=== PATIENT | male | born 1945 | race Caucasian/White ===

== ENCOUNTER → 2017-02-11 | Outpatient (CLI) | payer MEDICARE ==
[~2017-02-11] MED LIST: AMOX500C PO; ASPI-39 PO; CHOL500045 PO; FENO145T2 PO; MELO15TA23 PO; OMEP40CA5 PO; SIMV80TA3 PO; SUCR1TAB PO; THIA100T22 PO; TRAM50TA PO; ZOLP10TA4 PO
== END | disposition home or self-care (01) ==
LOC: LAB 11:59
PROVIDERS: ATTEND Family Medicine
DX: E78.5 Hyperlipidemia, unspecified (principal)
CPT/HCPCS: 36415; 82947; 83036

== ENCOUNTER → 2017-09-28 | Outpatient (CLI) | payer MEDICARE | END | disposition home or self-care (01) | LOC: RAD 13:04 | DX: J44.9 Chronic obstructive pulmonary disease, unspecified (principal); M25.78 Osteophyte, vertebrae | CPT/HCPCS: 71046 ==

== ENCOUNTER → 2018-03-08 | Outpatient (CLI) | payer MEDICARE ==
[~2018-03-08] MED LIST changes: -FENO145T2 PO; +FENO145T30 PO; -SIMV80TA3 PO; +SIMV80TA7 PO
--- NOTE | 2018-03-08 14:40 | RAD ---
Pelvis with both hips, 03/08/2018: HISTORY: Hip pain, arthritis There is severe narrowing of both hip joints with marginal spurring, subchondral sclerosis and cystic changes along both sides of the hip joints. The appearance is that of extensive osteoarthritis. There is mild associated irregularity of this articular surfaces of both femoral heads. Underlying avascular necrosis could be contributing to the cystic and sclerotic changes in the femoral heads. No fracture or dislocation is identified. Scattered vascular calcifications are present. IMPRESSION: 1. Severe osteoarthritis at both hip joints. 2. No acute bony abnormality is detected. Electronically signed by: Arnie Killian MD (03/08/2018 2:37 PM) [facility]
== END | disposition home or self-care (01) ==
LOC: RAD 13:50
PROVIDERS: ATTEND Internal Medicine Cardiovascular Disease
DX: M17.0 Bilateral primary osteoarthritis of knee (principal); I10 Essential (primary) hypertension; E78.00 Pure hypercholesterolemia, unspecified; I25.10 Atherosclerotic heart disease of native coronary artery without angina pectoris; Z87.891 Personal history of nicotine dependence
CPT/HCPCS: 73521

== ENCOUNTER 2020-11-07 01:36 | Inpatient (IN) | payer MEDICARE ==
[~2020-11-07] VITALS: Ht 175.3 cm; Wt 73.0 kg
[~2020-11-07 01:36] MED LIST changes: +FENO145T3 PO; -FENO145T30 PO; +OMEP40CA45 PO; -OMEP40CA5 PO; +SIMV80TA17 PO; -SIMV80TA7 PO
[2020-11-07 02:48] LABS: BASO # 0.1 x10^3/uL (0.0-0.2); BASO % 2 % (0-3); EOS # 0.3 x10^3/uL (0.0-0.7); EOS % 5 % (0-3); HEMATOCRIT 40.8 % (39.0-53.0); LYMPH # 1.7 x10^3/uL (1.0-4.8); LYMPH % 30 % (24-48); MEAN CORPUSCULAR HEMOGLOBIN 30 pg (25-35); MEAN CORPUSCULAR HGB CONC 34 g/dL (31-37); MEAN CORPUSCULAR VOLUME 87 fL (79-100); MONO # 0.5 x10^3/uL (0.0-1.1); MONO % 8 % (0-9); NEUT # 3.1 x10^3/uL (1.8-7.7); NEUT % 55 % (31-73); PLATELET COUNT 179 x10^3/uL (140-400); RED BLOOD COUNT 4.71 x10^6/uL (4.30-5.70); RED CELL DISTRIBUTION WIDTH 13.9 % (11.5-14.5); WHITE BLOOD COUNT 5.8 x10^3/uL (4.0-11.0)
--- NOTE | 2020-11-07 02:51 | ED.ADGEN ---
Past Medical History Past Medical History: Anxiety, Arthritis, GERD, High Cholesterol Past Surgical History: Tonsillectomy Smoking Status: Current Every Day Smoker Alcohol Use: None Drug Use: None General Adult EDM: Chief Complaint: MULTIPLE COMPLAINTS HPI: HPI: Patient is a 75-year-old male with past medical history of hyperlipidemia and high blood pressure who presents to the emergency room with multiple complaints. Patient states that 2 weeks ago he had an MRI done of his abdomen to look at something in his kidney and the noise within the MRI was very loud. He states that since that time he has been having tinnitus. He states that it sounds like a pulsing sensation in his right ear and is constant in nature. He states that 2 weeks ago he also had an episode where he lost the vision in the bottom half of his right eye. He states this only lasted a few minutes before resolving on its own. He states that this evening he had some mild chest tightness with some numbness in his arm. He states that these have both resolved. He states the chest tightness was very mild in nature. Review of Systems: Review of Systems: Complete ROS is negative unless otherwise documented in HPI Current Medications: Current Medications Medications (Trade) Dose Ordered Sig/Zan Start Time Stop Time Status Last Admin Dose Admin Info (CONTRAST GIVEN -- Rx MONITORING) 1 each PRN DAILY PRN 11/07/20 03:45 11/09/20 03:44 Iohexol (Omnipaque 300 Mg/ml) 75 ml 1X ONCE 11/07/20 03:45 11/07/20 03:46 DC 11/07/20 04:10 75 ML Allergies: Allergies: Allergies Coded Allergies Type Severity Reaction Last Updated Verified No Known Drug Allergies 10/30/13 No Physical Exam: PE: General: Awake, alert, NAD. Well Nourished, well hydrated. Cooperative HEENT: Atraumatic, EOMI, PERRL, airway patent, moist oral mucosa Neck: Supple, trachea midline Respiratory: CTA bilaterally, normal effort, no wheezing/crackles CV: RRR, no murmur, cap refill <2 GI: Soft, nondistended, nontender, no masses MSK: No obvious deformities Skin: Warm, dry, intact Neuro: A&O x3, speech NL, 5/5 strength in BUE/BLE distally and proximally, CN 2- 12 intact, cerebellar testing normal Psych: Normal affect, normal mood, not suicidal or homicidal Current Patient Data: Labs: Laboratory Tests Test 11/07/20 02:18 11/07/20 03:37 White Blood Count 5.8 x10^3/uL (4.0-11.0) Red Blood Count 4.71 x10^6/uL (4.30-5.70) Hemoglobin 14.0 g/dL (13.0-17.5) Hematocrit 40.8 % (39.0-53.0) Mean Corpuscular Volume 87 fL (79-100) Mean Corpuscular Hemoglobin 30 pg (25-35) Mean Corpuscular Hemoglobin Concent 34 g/dL (31-37) Red Cell Distribution Width 13.9 % (11.5-14.5) Platelet Count 179 x10^3/uL (140-400) Neutrophils (%) (Auto) 55 % (31-73) Lymphocytes (%) (Auto) 30 % (24-48) Monocytes (%) (Auto) 8 % (0-9) Eosinophils (%) (Auto) 5 % (0-3) H Basophils (%) (Auto) 2 % (0-3) Neutrophils # (Auto) 3.1 x10^3/uL (1.8-7.7) Lymphocytes # (Auto) 1.7 x10^3/uL (1.0-4.8) Monocytes # (Auto) 0.5 x10^3/uL (0.0-1.1) Eosinophils # (Auto) 0.3 x10^3/uL (0.0-0.7) Basophils # (Auto) 0.1 x10^3/uL (0.0-0.2) Sodium Level 143 mmol/L (136-145) Potassium Level 3.6 mmol/L (3.5-5.1) Chloride Level 106 mmol/L (98-107) Carbon Dioxide Level 31 mmol/L (21-32) Anion Gap 6 (6-14) Blood Urea Nitrogen 20 mg/dL (8-26) Creatinine 1.2 mg/dL (0.7-1.3) Estimated GFR (Cockcroft-Gault) 59.0 BUN/Creatinine Ratio 17 (6-20) Glucose Level 91 mg/dL (70-99) Calcium Level 9.0 mg/dL (8.5-10.1) Total Bilirubin 0.3 mg/dL (0.2-1.0) Aspartate Amino Transferase (AST) 19 U/L (15-37) Alanine Aminotransferase (ALT) 32 U/L (16-63) Alkaline Phosphatase 91 U/L (46-116) Troponin I Quantitative < 0.017 ng/mL (0.000-0.055) MI-Nsj-I-Type Natriuretic Peptide 43 pg/mL (0-449) Total Protein 7.4 g/dL (6.4-8.2) Albumin 4.1 g/dL (3.4-5.0) Albumin/Globulin Ratio 1.2 (1.0-1.7) Urine Collection Type Unknown Urine Color Yellow Urine Clarity Clear Urine pH 5.5 (<5.0-8.0) Urine Specific Vaughn 1.025 (1.000-1.030) Urine Protein 30 mg/dL (NEG-TRACE) Urine Glucose (UA) Negative mg/dL (NEG) Urine Ketones (Stick) Negative mg/dL (NEG) Urine Blood Large (NEG) Urine Nitrite Negative (NEG) Urine Bilirubin Negative (NEG) Urine Urobilinogen Dipstick 0.2 mg/dL (0.2 mg/dL) Urine Leukocyte Esterase Small (NEG) Urine RBC >40 /HPF (0-2) Urine WBC 5-10 /HPF (0-4) Urine Squamous Epithelial Cells Occ /LPF Urine Bacteria 0 /HPF (0-FEW) Urine Mucus Marked /LPF Laboratory Tests 11/07/20 02:18 Laboratory Tests 11/07/20 02:18 Vital Signs: Vital Signs Date Time Temp Pulse Resp B/P (MAP) Pulse Ox O2 Delivery O2 Flow Rate FiO2 11/07/20 04:29 62 16 122/58 (79) 98 Room Air 11/07/20 01:55 99.0 99.0 EKG: EKG: [] Heart Score: C/O Chest Pain: N/A Risk Factors: Risk Factors: DM, Current or recent (<one month) smoker, HTN, HLP, family history of CAD, obesity. Risk Scores: Score 0 - 3: 2.5% MACE over next 6 weeks - Discharge Home Score 4 - 6: 20.3% MACE over next 6 weeks - Admit for Clinical Observation Score 7 - 10: 72.7% MACE over next 6 weeks - Early Invasive Strategies Radiology/Procedures: Radiology/Procedures: [] Course & Med Decision Making: Course & Med Decision Making Pertinent Labs and Imaging studies reviewed. (See chart for details) Patient is a 75-year-old male who presents to the emergency room with several vague complaints. All of patient's complaints have now resolved. He did have an episode of visual loss in his right eye and has been having tinnitus. This could be related to a carotid artery blockage. Patient also had some fleeting chest pain. Cardiac evaluation will be done. CT head and CT angio head and neck will be done to evaluate patient's tinnitus and visual changes. He does not have any signs of cranial nerve dysfunction or weakness on exam. CT angio shows stenosis which may be the cause of patient's tinnitus. Given patient's intermittent symptoms there is concern that at some point patient may be at risk of having a stroke. We will admit him for evaluation by neurology and vascular surgery. John Disclaimer: John Disclaimer: This electronic medical record was generated, in whole or in part, using a voice recognition dictation system. 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
[2020-11-07 03:08] LABS: CREATININE 1.2 mg/dL (0.7-1.3); POTASSIUM 3.6 mmol/L (3.5-5.1)
[2020-11-07 03:16] LABS: ALBUMIN 4.1 g/dL (3.4-5.0); ALBUMIN/GLOBULIN RATIO 1.2 (1.0-1.7); TOTAL BILIRUBIN 0.3 mg/dL (0.2-1.0); TOTAL PROTEIN 7.4 g/dL (6.4-8.2)
[2020-11-07 03:45] LABS: BILIRUBIN,URINE NEGATIVE (NEG); CLARITY,URINE CLEAR; COLOR,URINE YELLOW; NITRITE,URINE NEGATIVE (NEG); PH,URINE 5.5 (<5.0-8.0); PROTEIN,URINE 30 mg/dL (NEG-TRACE); UROBILINOGEN,URINE 0.2 mg/dL (0.2 mg/dL)
[2020-11-07] MEDS ORDERED: CONTRAST GIVEN. MC PRN (03:45)
[2020-11-07] MEDS ORDERED: IOHEXOL 300 MG/ML 100ML VIAL. IV ONE (03:45)
--- NOTE | 2020-11-07 04:06 | RAD ---
CT head without contrast dated 11/07/2020. Comparison made to 10/30/2013. CLINICAL INDICATION: Visual changes. Tinnitus. TECHNIQUE: Contiguous axial imaging the head was performed from skull base to vertex. No contrast administered. One or more of the following individualized dose reduction techniques were utilized for this examinat ion: 1. Automated exposure control 2. Adjustment of the mA and/or kV according to patient size 3. Use of iterative reconstruction technique. FINDINGS: Ventricles and sulci are mildly prominent for age. No midline shift or mass effect. Mild patchy low d ensity in the deep/subcortical periventricular white matter. No hemorrhage or extra-axial collection. Posterior fossa and brainstem unremarkable. Visualized paranasal sinuses and mastoid air cells are clear. No apparent calvarial abnormality. IMPRESSION: 1. No evidence of acute intracranial hemorrhage or mass. 2. Mild chronic small vessel ischemic changes and atrophy. Electronically signed by: Deandre Lim MD (11/07/2020 4:03 AM) [facility]
[2020-11-07 04:08] LABS: BACTERIA,URINE 0 /HPF (0-FEW); RBC,URINE >40 /HPF (0-2)
--- NOTE | 2020-11-07 04:20 | RAD ---
Single view chest dated 11/07/2020. Comparison made to 09/28/2017. CLINICAL INDICATION: Chest pain. FINDINGS: Single upright portable exam performed. Heart and mediastinal contours are stable. Lungs are somewhat hyperinflated and there are some prominent perihilar linear markings, unchanged. Small nodular focus in the right upper lobe is stable. No pleural effusion or pneumothorax. IMPRESSION: No acute radiographic abnormality. Stable findings compared to 09/28/2017. Electronically signed by: Deandre Lim MD (11/07/2020 4:18 AM) [facility]
--- NOTE | 2020-11-07 05:00 | RAD ---
CTA head and neck with contrast dated 11/07/2020. No comparison available. CLINICAL INDICATION: Tinnitus and visual changes. TECHNIQUE: Contiguous axial imaging of the head and neck performed following the intravenous administration of 7 5 cc Omnipaque 300. Study was performed as dedicated CTA with thin cut coronal and sagittal MIPS elvis nstruction. One or more of the following individualized dose reduction techniques were utilized for this examinat ion: 1. Automated exposure control 2. Adjustment of the mA and/or kV according to patient size 3. Use of iterative reconstruction technique Carotid Stenosis calculations for CT, MR, and conventional angiography are based upon measurements of the distal ICA diameter in accordance with the NASCET methodology. Stenosis calculations for carotid ultrasound studies are derived from validated velocity criteria which are known to correlate with th e NASCET methodology. FINDINGS: Arch anatomy is standard. Scattered calcific plaque at the origin of the left common carotid and bila teral subclavian arteries. No osteal stenosis. There is mild narrowing of the left vertebral artery o rigin. The right vertebral artery origin is patent. Bilateral vertebrals are otherwise patent to the skull base. No intimal flap or focal stenosis. The intradural vertebral arteries are patent. Basilar artery is well formed. Bilateral BLINDST[employer] MACHINE OPERATOR are patent. There is origin of the left BLINDSTITCH MACHINE OPERATOR. Common carotid arteries are patent. There is mild narrowing of the mid to distal right CCA. Calcific and soft plaque at the right carotid bifurcation results in high-grade narrowing of the proximal ICA, estimated at 75-80% stenosis. The right ECA is occluded proximally.. The right internal carotid rangel ry is otherwise patent to the skull base. There is mild calcific plaque at the left carotid bifurcati on resulting in mild narrowing of the proximal left ICA. Left ICA is otherwise patent to the skull ba se. Petrous and cavernous internal carotid arteries are patent. There is scattered calcific plaque result ing in mild multifocal narrowing. CHINMAY and MCA branches are patent. There is a patent anterior communi cating artery. No evidence of aneurysm. No proximal branch vessel occlusion. Postcontrast imaging the brain shows no abnormal enhancement. Dural venous sinuses are grossly patent . No significant soft tissue abnormality. Images of lung apices show mild to moderate emphysema. IMPRESSION: 1. High-grade stenosis of the proximal right ICA, estimated at 75-80% stenosis. 2. Mild narrowing of the proximal left ICA. 3. Occlusion of the right ECA. 4. No evidence of aneurysm or proximal MCA branch occlusion. Electronically signed by: Deandre Lim MD (11/07/2020 4:58 AM) [facility]
--- NOTE | 2020-11-07 06:21 | EKG ---
[facility] [address] [place] [address] Test Date: 2020-11-07 Test Time: 01:46:18 Pat Name: CHARU UNDERWOOD Department: Room: Gender: Bar Hostess: : 1945 Requested By: ILENE PHILLIPS Order Number: [id number] Reading MD: Measurements Intervals [place] Rate: 79 P: 66 [place]: 176 QRS: 38 QRSD: 72 T: 73 QT: 370 QTc: 425 Interpretive Statements SINUS RHYTHM T ABNORMALITY IN HIGH LATERAL LEADS ABNORMAL ECG RI6.01 No previous ECG available for comparison
[2020-11-07 07:20] VITALS: BP 150/56
[2020-11-07] MEDS ORDERED: AMLO-187 PO (07:46)
[2020-11-07] MEDS ORDERED: TEMA30CA PO (07:46)
[2020-11-07] MEDS ORDERED: METO-239 (07:46)
[2020-11-07] MEDS ORDERED: TAMS0.4C97 (07:46)
[2020-11-07] MEDS ORDERED: HYDR-2763 PO (07:46)
[2020-11-07] MEDS ORDERED: ROSU40TA22 PO (07:46)
[2020-11-07] MEDS ORDERED: MORPHINE SULFATE 4 MG/ML VIAL. IV PRN (08:15)
[2020-11-07 08:54] LABS: CHOLESTEROL/HDL RATIO 4.1
[2020-11-07] MEDS ORDERED: SUCRALFATE 1 GM TABLET. PO SCH (09:00)
[2020-11-07] MEDS: METOPROLOL SUCC 24HR ER 25 MG TAB.ER.24H. PO SCH (09:00)
[2020-11-07] MEDS: THIAMINE 100 MG TABLET. PO SCH ×2 (09:25→21:08)
[2020-11-07] MEDS: TAMSULOSIN 0.4 MG CAP.ER.24H. PO SCH ×2 (09:25→09:27)
[2020-11-07] MEDS: HYDROcodone/APAP 7.5/325MG 1 TAB TABLET PO PRN ×2 (09:25→14:00)
[2020-11-07 10:29] VITALS: BP 107/58
--- NOTE | 2020-11-07 10:32 | PDOC2 ---
NEUROLOGY CONSULT Date of Service DOS: DATE: 11/07/20 TIME: 10:24 Reason for Consult Reason for Consult: Multiple neurological symptoms Referring Physician Referring Physician: Dr. Ojeda Source Source: Chart review, Patient History of Present Illness History of Present Illness The patient is a 75-year-old right-handed male who came to emergency department last night with chest pain and left arm pain and numbness. About 3 weeks ago he had a brief episode of inferior altitudinal right eye visual field deficit lasting just a few minutes. There was no pain involved. Then, he had some MRI studies done on his chest, after which she has noticed pulsatile tinnitus, worse in the right ear. He feels fine today. I saw him in 2013 for migraine visual symptoms. He has had none of that recently. Past Medical History Cardiovascular: Hyperlipidemia CENTRAL NERVOUS SYSTEM: Migraine (varient with stroke symptoms) Musculoskeletal: Osteoarthritis (Is supposed to have bilateral hip replacements) Renal/: Other (Nephrolithiasis) Past Surgical History Past Surgical History: Tonsillectomy (Adenoidectomy), Other (Prostate) Family History Family History: No pertinent hx (Adopted), Other Social History Social History Single, retired, ex-smoker, rare alcohol Current Medications Current Medications Current Medications Iohexol (Omnipaque 300 Mg/ml) 75 ml 1X ONCE IV Last administered on 11/07/20at 04:10; Start 11/07/20 at 03:45; Stop 11/07/20 at 03:46; Status DC Info (CONTRAST GIVEN -- Rx MONITORING) 1 each PRN DAILY PRN MC SEE COMMENTS; Start 11/07/20 at 03:45; Stop 11/09/20 at 03:44 Acetaminophen/ Hydrocodone Bitart (Lortab 7.5/325) 1 tab PRN TID PRN PO MILD TO MODERATE PAIN Last administered on 11/07/20at 09:25; Start 11/07/20 at 08:15 Metoprolol Succinate (Toprol Xl) 50 mg DAILY PO ; Start 11/07/20 at 09:00 Sucralfate (Carafate) 1 gm QID PO ; Start 11/07/20 at 09:00; Stop 11/07/20 at 08:24; Status DC Tamsulosin HCl (Flomax) 0.4 mg DAILY PO Last administered on 11/07/20at 09:27; Start 11/07/20 at 09:00 Temazepam (Restoril) 30 mg PRN QHS PRN PO sleep aid; Start 11/07/20 at 08:15 Thiamine Mononitrate (Vitamin B-1) 100 mg BID PO Last administered on 11/07/20at 09:25; Start 11/07/20 at 09:00 Morphine Sulfate (Morphine Sulfate) 4 mg PRN Q2HR PRN IV SEVERE PAIN; Start 11/07/20 at 08:15 Aspirin ([employer] ([place] [employer] Aspirin) 325 mg DAILYWBKFT PO ; Start 11/07/20 at 09:00 Active Scripts Active Reported Rosuvastatin Calcium 40 Mg Tablet 1 Tab PO DAILY Hydrocodone-Acetamin 7.5-325 (Hydrocodone/Acetaminophen) 1 Each Tablet 1 Tab PO TID PRN Temazepam 30 Mg Capsule 1 Cap PO PRN QHS PRN Flomax (Tamsulosin Hcl) 0.4 Mg Cap.er.24h 0.04 Mg DAILY Metoprolol Succinate ( Xl ) (Metoprolol Succinate) 25 Mg Tab.er.24h 50 Mg DAILY Amlodipine Besylate 10 Mg Tablet 1 Tab PO DAILY MDD 10 Vitamin D (Cholecalciferol (Vitamin D3)) 5,000 Unit Tablet 5,000 Unit PO DAILY Anderson Chewable (Aspirin) 81 Mg Tab.chew 81 Mg PO DAILY Vitamin B-1 (Thiamine Mononitrate) 100 Mg Tablet 100 Mg PO BID Omeprazole 40 Mg Capsule.dr 40 Mg PO DAILY Allergies Allergies: Coded Allergies: No Known Drug Allergies (Unverified , 10/30/13) ROS Review of System Negative for fever, chills, weight loss, shortness of breath, chest pain, indigestion, hematochezia, melena, and dysuria. Full 14-point review of systems is negative. Physical Exam Physical Examination General: Well-developed, well-nourished white male in no acute distress HEENT: Normocephalic andatraumatic. Tympanic membranes clear.Temporal arteriespulsatile and nontender.Fundoscopic exam unremarkable Neck: Supple without bruit, no meningismus Musculoskeletal: Stability:see neurologic. Gait exam:see neurologic. Tone:see neurologic.Strength:see neurologic. Neurological: Mental Status:intact, orientation, memory, attention span/concentration, language, fund of knowledge normal. Cranial Nerves:Pupils equal and reactive to light, extraocular movements areintact, visual gold are full to confrontation. Facial sensation is normal. There is no facial asymmetry. Vestibulo-ocular reflex is intact. Palate elevates and tongue protrudes in midline. All other cranial related problems are negative except as mentioned before.Reflexes:2+ and symmetric with flexor plantar responses. Motor:5/5 strength with normal tone and bulk. Coordination:Finger-nose finger and cbxd-re-stef testing are normal. Rapid alternating movements and fine finger movements are intact. Gait:Arthritic and antalgic, uses 2 canes. Sensory:Normal pinprick, vibration, light touch, proprioception. Vitals VITALS Vital Signs Date Time Temp Pulse Resp B/P (MAP) Pulse Ox O2 Delivery O2 Flow Rate FiO2 11/07/20 09:25 18 Room Air 11/07/20 07:20 98.1 75 150/56 (87) 98 98.1 Labs Labs Laboratory Tests Test 11/07/20 02:18 11/07/20 03:37 White Blood Count 5.8 x10^3/uL (4.0-11.0) Red Blood Count 4.71 x10^6/uL (4.30-5.70) Hemoglobin 14.0 g/dL (13.0-17.5) Hematocrit 40.8 % (39.0-53.0) Mean Corpuscular Volume 87 fL (79-100) Mean Corpuscular Hemoglobin 30 pg (25-35) Mean Corpuscular Hemoglobin Concent 34 g/dL (31-37) Red Cell Distribution Width 13.9 % (11.5-14.5) Platelet Count 179 x10^3/uL (140-400) Neutrophils (%) (Auto) 55 % (31-73) Lymphocytes (%) (Auto) 30 % (24-48) Monocytes (%) (Auto) 8 % (0-9) Eosinophils (%) (Auto) 5 % (0-3) Basophils (%) (Auto) 2 % (0-3) Neutrophils # (Auto) 3.1 x10^3/uL (1.8-7.7) Lymphocytes # (Auto) 1.7 x10^3/uL (1.0-4.8) Monocytes # (Auto) 0.5 x10^3/uL (0.0-1.1) Eosinophils # (Auto) 0.3 x10^3/uL (0.0-0.7) Basophils # (Auto) 0.1 x10^3/uL (0.0-0.2) Sodium Level 143 mmol/L (136-145) Potassium Level 3.6 mmol/L (3.5-5.1) Chloride Level 106 mmol/L (98-107) Carbon Dioxide Level 31 mmol/L (21-32) Anion Gap 6 (6-14) Blood Urea Nitrogen 20 mg/dL (8-26) Creatinine 1.2 mg/dL (0.7-1.3) Estimated GFR (Cockcroft-Gault) 59.0 BUN/Creatinine Ratio 17 (6-20) Glucose Level 91 mg/dL (70-99) Calcium Level 9.0 mg/dL (8.5-10.1) Total Bilirubin 0.3 mg/dL (0.2-1.0) Aspartate Amino Transf (AST/SGOT) 19 U/L (15-37) Alanine Aminotransferase (ALT/SGPT) 32 U/L (16-63) Alkaline Phosphatase 91 U/L (46-116) Troponin I Quantitative < 0.017 ng/mL (0.000-0.055) LS-Nwj-C-Type Natriuretic Peptide 43 pg/mL (0-449) Total Protein 7.4 g/dL (6.4-8.2) Albumin 4.1 g/dL (3.4-5.0) Albumin/Globulin Ratio 1.2 (1.0-1.7) Triglycerides Level 148 mg/dL (0-150) Cholesterol Level 149 mg/dL (0-200) LDL Cholesterol, Calculated 83 mg/dL (0-100) VLDL Cholesterol, Calculated 30 mg/dL (0-40) Non-HDL Cholesterol Calculated 113 mg/dL (0-129) HDL Cholesterol 36 mg/dL (40-60) Cholesterol/HDL Ratio 4.1 Thyroid Stimulating Hormone (TSH) 6.154 uIU/mL (0.358-3.74) Urine Collection Type Unknown Urine Color Yellow Urine Clarity Clear Urine pH 5.5 (<5.0-8.0) Urine Specific [place] 1.025 (1.000-1.030) Urine Protein 30 mg/dL (NEG-TRACE) Urine Glucose (UA) Negative mg/dL (NEG) Urine Ketones (Stick) Negative mg/dL (NEG) Urine Blood Large (NEG) Urine Nitrite Negative (NEG) Urine Bilirubin Negative (NEG) Urine Urobilinogen Dipstick 0.2 mg/dL (0.2 mg/dL) Urine Leukocyte Esterase Small (NEG) Urine RBC >40 /HPF (0-2) Urine WBC 5-10 /HPF (0-4) Urine Squamous Epithelial Cells Occ /LPF Urine Bacteria 0 /HPF (0-FEW) Urine Mucus Marked /LPF Laboratory Tests Test 11/07/20 02:18 11/07/20 03:37 White Blood Count 5.8 x10^3/uL (4.0-11.0) Red Blood Count 4.71 x10^6/uL (4.30-5.70) Hemoglobin 14.0 g/dL (13.0-17.5) Hematocrit 40.8 % (39.0-53.0) Mean Corpuscular Volume 87 fL (79-100) Mean Corpuscular Hemoglobin 30 pg (25-35) Mean Corpuscular Hemoglobin Concent 34 g/dL (31-37) Red Cell Distribution Width 13.9 % (11.5-14.5) Platelet Count 179 x10^3/uL (140-400) Neutrophils (%) (Auto) 55 % (31-73) Lymphocytes (%) (Auto) 30 % (24-48) Monocytes (%) (Auto) 8 % (0-9) Eosinophils (%) (Auto) 5 % (0-3) Basophils (%) (Auto) 2 % (0-3) Neutrophils # (Auto) 3.1 x10^3/uL (1.8-7.7) Lymphocytes # (Auto) 1.7 x10^3/uL (1.0-4.8) Monocytes # (Auto) 0.5 x10^3/uL (0.0-1.1) Eosinophils # (Auto) 0.3 x10^3/uL (0.0-0.7) Basophils # (Auto) 0.1 x10^3/uL (0.0-0.2) Sodium Level 143 mmol/L (136-145) Potassium Level 3.6 mmol/L (3.5-5.1) Chloride Level 106 mmol/L (98-107) Carbon Dioxide Level 31 mmol/L (21-32) Anion Gap 6 (6-14) Blood Urea Nitrogen 20 mg/dL (8-26) Creatinine 1.2 mg/dL (0.7-1.3) Estimated GFR (Cockcroft-Gault) 59.0 BUN/Creatinine Ratio 17 (6-20) Glucose Level 91 mg/dL (70-99) Calcium Level 9.0 mg/dL (8.5-10.1) Total Bilirubin 0.3 mg/dL (0.2-1.0) Aspartate Amino Transf (AST/SGOT) 19 U/L (15-37) Alanine Aminotransferase (ALT/SGPT) 32 U/L (16-63) Alkaline Phosphatase 91 U/L (46-116) Troponin I Quantitative < 0.017 ng/mL (0.000-0.055) CS-Pps-V-Type Natriuretic Peptide 43 pg/mL (0-449) Total Protein 7.4 g/dL (6.4-8.2) Albumin 4.1 g/dL (3.4-5.0) Albumin/Globulin Ratio 1.2 (1.0-1.7) Triglycerides Level 148 mg/dL (0-150) Cholesterol Level 149 mg/dL (0-200) LDL Cholesterol, Calculated 83 mg/dL (0-100) VLDL Cholesterol, Calculated 30 mg/dL (0-40) Non-HDL Cholesterol Calculated 113 mg/dL (0-129) HDL Cholesterol 36 mg/dL (40-60) Cholesterol/HDL Ratio 4.1 Thyroid Stimulating Hormone (TSH) 6.154 uIU/mL (0.358-3.74) Urine Collection Type Unknown Urine Color Yellow Urine Clarity Clear Urine pH 5.5 (<5.0-8.0) Urine Specific [place] 1.025 (1.000-1.030) Urine Protein 30 mg/dL (NEG-TRACE) Urine Glucose (UA) Negative mg/dL (NEG) Urine Ketones (Stick) Negative mg/dL (NEG) Urine Blood Large (NEG) Urine Nitrite Negative (NEG) Urine Bilirubin Negative (NEG) Urine Urobilinogen Dipstick 0.2 mg/dL (0.2 mg/dL) Urine Leukocyte Esterase Small (NEG) Urine RBC >40 /HPF (0-2) Urine WBC 5-10 /HPF (0-4) Urine Squamous Epithelial Cells Occ /LPF Urine Bacteria 0 /HPF (0-FEW) Urine Mucus Marked /LPF Images Images CT head without contrast dated 11/07/2020. Comparison made to 10/30/2013. CLINICAL INDICATION: Visual changes. Tinnitus. TECHNIQUE: Contiguous axial imaging the head was performed from skull base to vertex. No contrast administered. One or more of the following individualized dose reduction techniques were utilized for this examination: 1. Automated exposure control 2. Adjustment of the mA and/or kV according to patient size 3. Use of iterative reconstruction technique. FINDINGS: Ventricles and sulci are mildly prominent for age. No midline shift or mass e ffect. Mild patchy low density in the deep/subcortical periventricular white matter. No hemorrhage or extra-axial collection. Posterior fossa and brainstem unremarkable. Visualized paranasal sinuses and mastoid air cells are clear. No apparent calvarial abnormality. IMPRESSION: 1. No evidence of acute intracranial hemorrhage or mass. 2. Mild chronic small vessel ischemic changes and atrophy. CTA head and neck with contrast dated 11/07/2020. No comparison available. CLINICAL INDICATION: Tinnitus and visual changes. TECHNIQUE: Contiguous axial imaging of the head and neck performed following the intravenous administration of 75 cc Omnipaque 300. Study was performed as dedicated CTA with thin cut coronal and sagittal MIPS reconstruction. One or more of the following individualized dose reduction techniques were utilized for this examination: 1. Automated exposure control 2. Adjustment of the mA and/or kV according to patient size 3. Use of iterative reconstruction technique Carotid Stenosis calculations for CT, MR, and conventional angiography are based upon measurements of the distal ICA diameter in accordance with the NASCET methodology. Stenosis calculations for carotid ultrasound studies are derived from validated velocity criteria which are known to correlate with the NASCET methodology. FINDINGS: Arch anatomy is standard. Scattered calcific plaque at the origin of the left common carotid and bilateral subclavian arteries. No osteal stenosis. There is mild narrowing of the left vertebral artery origin. The right vertebral artery origin is patent. Bilateral vertebrals are otherwise patent to the skull base. No intimal flap or focal stenosis. The intradural vertebral arteries are patent. Basilar artery is well formed. Bilateral [employer] are patent. There is origin of the left [employer]. Common carotid arteries are patent. There is mild narrowing of the mid to distal right CCA. Calcific and soft plaque at the right carotid bifurcation results in high-grade narrowing of the proximal ICA, estimated at 75-80% stenosis. The right ECA is occluded proximally.. The right internal carotid artery is otherwise patent to the skull base. There is mild calcific plaque at the left carotid bifurcation resulting in mild narrowing of the proximal left ICA. Left ICA is otherwise patent to the skull base. Petrous and cavernous internal carotid arteries are patent. There is scattered calcific plaque resulting in mild multifocal narrowing. [place] and MCA branches are patent. There is a patent anterior communicating artery. No evidence of aneurysm. No proximal branch vessel occlusion. Postcontrast imaging the brain shows no abnormal enhancement. Dural venous sinuses are grossly patent. No significant soft tissue abnormality. Images of lung apices show mild to moderate emphysema. IMPRESSION: 1. High-grade stenosis of the proximal right ICA, estimated at 75-80% stenosis. 2. Mild narrowing of the proximal left ICA. 3. Occlusion of the right ECA. 4. No evidence of aneurysm or proximal MCA branch occlusion. Assessment/Plan Assessment/Plan Impression: High-grade stenosis of the proximal right ICA, estimated at 75-80% stenosis, m ild narrowing of the proximal left ICA. He had an episode of altitudinal visual field defect inferiorly, which is somewhat atypical for embolic phenomenon, but still possible Tinnitus following exposure to noise in an MRI scanner Chest pain and left arm pain and numbness, probably cardiac versus GI versus the usual chest pain etiologies. I doubt this was a transient ischemic attack. 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 Recommendations: Agree with obtaining vascular surgery consult, the stenosis on the right carotid is symptomatic MRI of the brain Cardiology consult and echocardiogram Aspirin Lipid profile, already done, he does not need a statin Outpatient ENT consultation with audiology, regarding tinnitus Follow-up with me as needed. Thank you for letting me help with the patient's care. JENNIFER ESCUDERO MD Nov 07, 2020 10:32
--- NOTE | 2020-11-07 11:39 | NUR ---
SS following for discharge planning. SS reviewed pt chart and discussed with pt RN. Pt is from home and is currently on room air. Neurology, Cardiology, Vascular, and Dr. Doherty consulted. Brain MRI and ECHO ordered. SS will continue to follow for discharge planning.
--- NOTE | 2020-11-07 11:45 | PDOC1 ---
History and Physical Date of Admission Date of Admission DATE: 11/07/20 TIME: 11:43 Identification/Chief Complaint Chief Complaint Arm weakness, leg weakness, Source Source: Chart review, Patient History of Present Illness History of Present Illness Mr. Espinal is a 75-year-old male admit with hip pain, leg pain, and arm weakness. He has multiple complaints he reports having a recent MRI, with angio done and complains of worsening tinnitus withpain, he has some new vision change, some blurry vision that is now improved. He states that this evening he had some mild chest tightness with some numbness in his arm. Past Medical History Cardiovascular: Hyperlipidemia CENTRAL NERVOUS SYSTEM: Migraine (varient with stroke symptoms) Musculoskeletal: Osteoarthritis (Is supposed to have bilateral hip replacements) Renal/: Other (Nephrolithiasis) Past Surgical History Past Surgical History: Tonsillectomy (Adenoidectomy), Other (Prostate) Family History Family History: No Significant Social History Smoke: No ALCOHOL: none Drugs: None Current Problem List Problem List Problems Medical Problems: (1) Chest pain Status: Acute (2) Stenosis of right carotid artery greater than 50% Status: Acute (3) Tinnitus Status: Acute Current Medications Current Medications Current Medications Iohexol (Omnipaque 300 Mg/ml) 75 ml 1X ONCE IV Last administered on 11/07/20at 04:10; Start 11/07/20 at 03:45; Stop 11/07/20 at 03:46; Status DC Info (CONTRAST GIVEN -- Rx MONITORING) 1 each PRN DAILY PRN MC SEE COMMENTS; Start 11/07/20 at 03:45; Stop 11/09/20 at 03:44 Acetaminophen/ Hydrocodone Bitart (Lortab 7.5/325) 1 tab PRN TID PRN PO MILD TO MODERATE PAIN Last administered on 11/07/20at 09:25; Start 11/07/20 at 08:15 Metoprolol Succinate (Toprol Xl) 50 mg DAILY PO ; Start 11/07/20 at 09:00 Sucralfate (Carafate) 1 gm QID PO ; Start 11/07/20 at 09:00; Stop 11/07/20 at 08:24; Status DC Tamsulosin HCl (Flomax) 0.4 mg DAILY PO Last administered on 11/07/20at 09:27; Start 4/30/21 at 09:00 Temazepam (Restoril) 30 mg PRN QHS PRN PO sleep aid; Start 11/07/20 at 08:15 Thiamine Mononitrate (Vitamin B-1) 100 mg BID PO Last administered on 11/07/20at 09:25; Start 11/07/20 at 09:00 Morphine Sulfate (Morphine Sulfate) 4 mg PRN Q2HR PRN IV SEVERE PAIN; Start 11/07/20 at 08:15 Aspirin (Geoloqi Aspirin) 325 mg DAILYWBKFT PO ; Start 11/07/20 at 09:00 Active Scripts Active Reported Rosuvastatin Calcium 40 Mg Tablet 1 Tab PO DAILY Hydrocodone-Acetamin 7.5-325 (Hydrocodone/Acetaminophen) 1 Each Tablet 1 Tab PO TID PRN Temazepam 30 Mg Capsule 1 Cap PO PRN QHS PRN Flomax (Tamsulosin Hcl) 0.4 Mg Cap.er.24h 0.04 Mg DAILY Metoprolol Succinate ( Xl ) (Metoprolol Succinate) 25 Mg Tab.er.24h 50 Mg DAILY Amlodipine Besylate 10 Mg Tablet 1 Tab PO DAILY MDD 10 Vitamin D (Cholecalciferol (Vitamin D3)) 5,000 Unit Tablet 5,000 Unit PO DAILY Anderson Chewable (Aspirin) 81 Mg Tab.chew 81 Mg PO DAILY Vitamin B-1 (Thiamine Mononitrate) 100 Mg Tablet 100 Mg PO BID Omeprazole 40 Mg Capsule.dr 40 Mg PO DAILY Allergies Allergies: Coded Allergies: No Known Drug Allergies (Unverified , 10/30/13) ROS General: YES: Fatigue, Malaise; No: Night Sweats, Appetite, Other PSYCHOLOGICAL ROS: No: Anxiety, Behavioral Disorder, Concentration difficultie, Decreased libido, Depression, Disorientation, Hallucinations, Hostility, Irritablity, Memory difficulties, Mood Swings, Obsessive thoughts, Physical abuse, Sexual abuse, Sleep disturbances, Suicidal ideation, Other Eyes: No Blurry vision, No Decreased vision, No Double vision, No Dry eyes, No Excessive tearing, No Eye Pain, No Itchy Eyes, No Loss of vision, No Photophobia, No Scotomata, No Uses contacts, No Uses glasses, No Other Respiratory: No: Cough, Hemoptysis, Orthopnea, Pleuritic Pain, Shortness of breath, SOB with excertion, Sputum Changes, Stridor, Tachypnea, Wheezing, Other Cardiovascular: No Chest Pain, No Palpitations, No Orthopnea, No Paroxysmal Noc. Dyspnea, No Edema, No Lt Headedness, No Other Gastrointestinal: No Nausea, No Vomiting, No Abdominal Pain, No Diarrhea, No Constipation, No Melena, No Hematochezia, No Other Genitourinary: No Dysuria, No Frequency, No Incontinence, No Hematuria, No Retention, No Discharge, No Urgency, No Pain, No Flank Pain, No Other, No , No , No , No , No , No , No Musculoskeletal: Yes Joint Pain, Yes Joint Stiffness Neurological: No Behavorial Changes, No Bowel/Bladder ControlChng, No Confusion, No Dizziness, No Gait Disturbance, No Headaches, No Impaired Coord/balance, No Memory Loss, No Numbness/Tingling, No Seizures, No Speech Problems, No Tremors, No Visual Changes, No Weakness, No Other Skin: No Dry Skin, No Eczema, No Hair Changes, No Lumps, No Mole Changes, No Mottling, No Nail Changes, No Pruritus, No Rash, No Skin Lesion Changes, No Other, No Acne Physical Exam General: Alert, No acute distress HEENT: Atraumatic, PERRLA Extremities: No edema Skin: No rashes, No significant lesion Neuro: Normal tone, Sensation intact Psych/Mental Status: Mood NL Vitals Vitals Vital Signs Date Time Temp Pulse Resp B/P (MAP) Pulse Ox O2 Delivery O2 Flow Rate FiO2 11/07/20 10:29 98.5 62 16 107/58 (74) 95 Room Air 98.5 Labs Labs Laboratory Tests Test 11/07/20 02:18 11/07/20 03:37 11/07/20 09:35 White Blood Count 5.8 x10^3/uL (4.0-11.0) Red Blood Count 4.71 x10^6/uL (4.30-5.70) Hemoglobin 14.0 g/dL (13.0-17.5) Hematocrit 40.8 % (39.0-53.0) Mean Corpuscular Volume 87 fL (79-100) Mean Corpuscular Hemoglobin 30 pg (25-35) Mean Corpuscular Hemoglobin Concent 34 g/dL (31-37) Red Cell Distribution Width 13.9 % (11.5-14.5) Platelet Count 179 x10^3/uL (140-400) Neutrophils (%) (Auto) 55 % (31-73) Lymphocytes (%) (Auto) 30 % (24-48) Monocytes (%) (Auto) 8 % (0-9) Eosinophils (%) (Auto) 5 % (0-3) Basophils (%) (Auto) 2 % (0-3) Neutrophils # (Auto) 3.1 x10^3/uL (1.8-7.7) Lymphocytes # (Auto) 1.7 x10^3/uL (1.0-4.8) Monocytes # (Auto) 0.5 x10^3/uL (0.0-1.1) Eosinophils # (Auto) 0.3 x10^3/uL (0.0-0.7) Basophils # (Auto) 0.1 x10^3/uL (0.0-0.2) Sodium Level 143 mmol/L (136-145) Potassium Level 3.6 mmol/L (3.5-5.1) Chloride Level 106 mmol/L (98-107) Carbon Dioxide Level 31 mmol/L (21-32) Anion Gap 6 (6-14) Blood Urea Nitrogen 20 mg/dL (8-26) Creatinine 1.2 mg/dL (0.7-1.3) Estimated GFR (Cockcroft-Gault) 59.0 BUN/Creatinine Ratio 17 (6-20) Glucose Level 91 mg/dL (70-99) Calcium Level 9.0 mg/dL (8.5-10.1) Total Bilirubin 0.3 mg/dL (0.2-1.0) Aspartate Amino Transf (AST/SGOT) 19 U/L (15-37) Alanine Aminotransferase (ALT/SGPT) 32 U/L (16-63) Alkaline Phosphatase 91 U/L (46-116) Troponin I Quantitative < 0.017 ng/mL (0.000-0.055) < 0.017 ng/mL (0.000-0.055) UO-Mny-A-Type Natriuretic Peptide 43 pg/mL (0-449) Total Protein 7.4 g/dL (6.4-8.2) Albumin 4.1 g/dL (3.4-5.0) Albumin/Globulin Ratio 1.2 (1.0-1.7) Triglycerides Level 148 mg/dL (0-150) Cholesterol Level 149 mg/dL (0-200) LDL Cholesterol, Calculated 83 mg/dL (0-100) VLDL Cholesterol, Calculated 30 mg/dL (0-40) Non-HDL Cholesterol Calculated 113 mg/dL (0-129) HDL Cholesterol 36 mg/dL (40-60) Cholesterol/HDL Ratio 4.1 Thyroid Stimulating Hormone (TSH) 6.154 uIU/mL (0.358-3.74) Urine Collection Type Unknown Urine Color Yellow Urine Clarity Clear Urine pH 5.5 (<5.0-8.0) Urine Specific [place] 1.025 (1.000-1.030) Urine Protein 30 mg/dL (NEG-TRACE) Urine Glucose (UA) Negative mg/dL (NEG) Urine Ketones (Stick) Negative mg/dL (NEG) Urine Blood Large (NEG) Urine Nitrite Negative (NEG) Urine Bilirubin Negative (NEG) Urine Urobilinogen Dipstick 0.2 mg/dL (0.2 mg/dL) Urine Leukocyte Esterase Small (NEG) Urine RBC >40 /HPF (0-2) Urine WBC 5-10 /HPF (0-4) Urine Squamous Epithelial Cells Occ /LPF Urine Bacteria 0 /HPF (0-FEW) Urine Mucus Marked /LPF Laboratory Tests Test 11/07/20 02:18 11/07/20 03:37 11/07/20 09:35 White Blood Count 5.8 x10^3/uL (4.0-11.0) Red Blood Count 4.71 x10^6/uL (4.30-5.70) Hemoglobin 14.0 g/dL (13.0-17.5) Hematocrit 40.8 % (39.0-53.0) Mean Corpuscular Volume 87 fL (79-100) Mean Corpuscular Hemoglobin 30 pg (25-35) Mean Corpuscular Hemoglobin Concent 34 g/dL (31-37) Red Cell Distribution Width 13.9 % (11.5-14.5) Platelet Count 179 x10^3/uL (140-400) Neutrophils (%) (Auto) 55 % (31-73) Lymphocytes (%) (Auto) 30 % (24-48) Monocytes (%) (Auto) 8 % (0-9) Eosinophils (%) (Auto) 5 % (0-3) Basophils (%) (Auto) 2 % (0-3) Neutrophils # (Auto) 3.1 x10^3/uL (1.8-7.7) Lymphocytes # (Auto) 1.7 x10^3/uL (1.0-4.8) Monocytes # (Auto) 0.5 x10^3/uL (0.0-1.1) Eosinophils # (Auto) 0.3 x10^3/uL (0.0-0.7) Basophils # (Auto) 0.1 x10^3/uL (0.0-0.2) Sodium Level 143 mmol/L (136-145) Potassium Level 3.6 mmol/L (3.5-5.1) Chloride Level 106 mmol/L (98-107) Carbon Dioxide Level 31 mmol/L (21-32) Anion Gap 6 (6-14) Blood Urea Nitrogen 20 mg/dL (8-26) Creatinine 1.2 mg/dL (0.7-1.3) Estimated GFR (Cockcroft-Gault) 59.0 BUN/Creatinine Ratio 17 (6-20) Glucose Level 91 mg/dL (70-99) Calcium Level 9.0 mg/dL (8.5-10.1) Total Bilirubin 0.3 mg/dL (0.2-1.0) Aspartate Amino Transf (AST/SGOT) 19 U/L (15-37) Alanine Aminotransferase (ALT/SGPT) 32 U/L (16-63) Alkaline Phosphatase 91 U/L (46-116) Troponin I Quantitative < 0.017 ng/mL (0.000-0.055) < 0.017 ng/mL (0.000-0.055) FR-Aix-N-Type Natriuretic Peptide 43 pg/mL (0-449) Total Protein 7.4 g/dL (6.4-8.2) Albumin 4.1 g/dL (3.4-5.0) Albumin/Globulin Ratio 1.2 (1.0-1.7) Triglycerides Level 148 mg/dL (0-150) Cholesterol Level 149 mg/dL (0-200) LDL Cholesterol, Calculated 83 mg/dL (0-100) VLDL Cholesterol, Calculated 30 mg/dL (0-40) Non-HDL Cholesterol Calculated 113 mg/dL (0-129) HDL Cholesterol 36 mg/dL (40-60) Cholesterol/HDL Ratio 4.1 Thyroid Stimulating Hormone (TSH) 6.154 uIU/mL (0.358-3.74) Urine Collection Type Unknown Urine Color Yellow Urine Clarity Clear Urine pH 5.5 (<5.0-8.0) Urine Specific [place] 1.025 (1.000-1.030) Urine Protein 30 mg/dL (NEG-TRACE) Urine Glucose (UA) Negative mg/dL (NEG) Urine Ketones (Stick) Negative mg/dL (NEG) Urine Blood Large (NEG) Urine Nitrite Negative (NEG) Urine Bilirubin Negative (NEG) Urine Urobilinogen Dipstick 0.2 mg/dL (0.2 mg/dL) Urine Leukocyte Esterase Small (NEG) Urine RBC >40 /HPF (0-2) Urine WBC 5-10 /HPF (0-4) Urine Squamous Epithelial Cells Occ /LPF Urine Bacteria 0 /HPF (0-FEW) Urine Mucus Marked /LPF VTE Prophylaxis Ordered VTE Prophylaxis Devices: Yes VTE Pharmacological Prophylaxi: No Assessment/Plan Assessment/Plan dizzyness and weakness, worsenign back pain and leg weakess L4-L5 stensoss TIA right carotid stenosis, consult vascular CHF, CV consulted weakness, and hip pain, consult physiatry, admit, mult problems Justifications for Admission Other Justification MARCO ROMERO MD Nov 07, 2020 11:45
--- NOTE | 2020-11-07 13:12 | PDOC2 ---
VALERIANO GARCIA RECREATIONAL ASSISTANT 11/07/20 1312: CARDIAC CONSULT DATE OF CONSULT Date of Consult DATE: 11/07/20 TIME: 12:55 REASON FOR CONSULT Reason for Consult: Chest pain, TIA REFERRING PHYSICIAN Referring Physician: Justin SOURCE Source: Chart review, Patient HISTORY OF PRESENT ILLNESS HISTORY OF PRESENT ILLNESS This is a plesant 75 yo male admitted for complains of neuro symptoms. Reports on increasing tinnitus and felt like he was hearing pulsation and his blood gushing in his head and this occurred after MRI. Denies MENDOZA. Also had some left arm discomfort and numbness and he had epigastric region pain pressure lasting for 15 seconds. In the last few days he was having some starburst in his visual field which was typical with his past migraine episodes. 3 weeks ago he had vidual defect that last for about <1 minon his right eye that he could only see the upper hemisphere of his visual field. Denies any exertinal chest pain or SOA. No nausea or vomiting. Denies any past hx of CAD, VTE and no prior hx of CVA. He sees a prosthetic lab technician named Dr. Yanes at [facility] and he was suppose to have a stress test but he has not been called yet for schedule. He does take ASA and statin. Denies any slurred speech, anosmia, ageusia, and no prior covid-19 exposure. He did have his 2nd dose of Pfzer vaccine for covid on 10/30/2020. PAST MEDICAL HISTORY Cardiovascular: HTN, Hyperlipidemia Pulmonary: COPD CENTRAL NERVOUS SYSTEM: Migraine GI: GERD Heme/Onc: No pertinent hx Hepatobiliary: No pertinent hx Psych: No pertinent hx Musculoskeletal: Osteoarthritis Rheumatologic: No pertinent hx Infectious disease: No pertinent hx ENT: No pertinent hx Renal/: Benign prostatic enlarg., Other (nephrolithiasis) Endocrine: No pertinent hx Dermatology: No pertinent hx PAST SURGICAL HISTORY Past Surgical History: Tonsillectomy FAMILY HISTORY Family History: Adopted SOCIAL HISTORY Smoke: <1 pack per day ALCOHOL: none Drugs: None Lives: with Family CURRENT MEDICATIONS CURRENT MEDICATIONS Current Medications Medications (Trade) Dose Ordered Sig/Zan Route PRN Reason Start Time Stop Time Status Last Admin Dose Admin Iohexol (Omnipaque 300 Mg/ml) 75 ml 1X ONCE IV 11/07/20 03:45 11/07/20 03:46 DC 11/07/20 04:10 Acetaminophen/ Hydrocodone Bitart (Lortab 7.5/325) 1 tab PRN TID PRN PO MILD TO MODERATE PAIN 11/07/20 08:15 11/07/20 09:25 Tamsulosin HCl (Flomax) 0.4 mg DAILY PO 11/07/20 09:00 11/07/20 09:27 Thiamine Mononitrate (Vitamin B-1) 100 mg BID PO 11/07/20 09:00 11/07/20 09:25 ALLERGIES ALLERGIES: Coded Allergies: No Known Drug Allergies (Unverified , 10/30/13) ROS Review of System 14 point ROS evlauated with pertinent positives noted per HPI PHYSICAL EXAM General: Alert, Oriented X3, Cooperative, No acute distress HEENT: Atraumatic, Mucous membr. moist/pink Lungs: Clear to auscultation, Normal air movement Heart: Regular rate (SR), Normal S1, Normal S2, No murmurs Abdomen: Soft, No tenderness Extremities: No cyanosis, No edema Skin: No breakdown, No significant lesion Neuro: Normal speech, Sensation intact Psych/Mental Status: Mental status NL, Mood NL MUSCULOSKELETAL: Osteoarthritic changes both hands VITALS/I&O VITALS/I&O: Vital Signs Date Time Temp Pulse Resp B/P (MAP) Pulse Ox O2 Delivery O2 Flow Rate FiO2 11/07/20 10:29 98.5 62 16 107/58 (74) 95 Room Air 98.5 LABS Lab: Laboratory Tests Test 11/07/20 02:18 11/07/20 03:37 11/07/20 09:35 White Blood Count 5.8 x10^3/uL (4.0-11.0) Red Blood Count 4.71 x10^6/uL (4.30-5.70) Hemoglobin 14.0 g/dL (13.0-17.5) Hematocrit 40.8 % (39.0-53.0) Mean Corpuscular Volume 87 fL (79-100) Mean Corpuscular Hemoglobin 30 pg (25-35) Mean Corpuscular Hemoglobin Concent 34 g/dL (31-37) Red Cell Distribution Width 13.9 % (11.5-14.5) Platelet Count 179 x10^3/uL (140-400) Neutrophils (%) (Auto) 55 % (31-73) Lymphocytes (%) (Auto) 30 % (24-48) Monocytes (%) (Auto) 8 % (0-9) Eosinophils (%) (Auto) 5 % (0-3) H Basophils (%) (Auto) 2 % (0-3) Neutrophils # (Auto) 3.1 x10^3/uL (1.8-7.7) Lymphocytes # (Auto) 1.7 x10^3/uL (1.0-4.8) Monocytes # (Auto) 0.5 x10^3/uL (0.0-1.1) Eosinophils # (Auto) 0.3 x10^3/uL (0.0-0.7) Basophils # (Auto) 0.1 x10^3/uL (0.0-0.2) Sodium Level 143 mmol/L (136-145) Potassium Level 3.6 mmol/L (3.5-5.1) Chloride Level 106 mmol/L (98-107) Carbon Dioxide Level 31 mmol/L (21-32) Anion Gap 6 (6-14) Blood Urea Nitrogen 20 mg/dL (8-26) Creatinine 1.2 mg/dL (0.7-1.3) Estimated GFR (Cockcroft-Gault) 59.0 BUN/Creatinine Ratio 17 (6-20) Glucose Level 91 mg/dL (70-99) Calcium Level 9.0 mg/dL (8.5-10.1) Total Bilirubin 0.3 mg/dL (0.2-1.0) Aspartate Amino Transferase (AST) 19 U/L (15-37) Alanine Aminotransferase (ALT) 32 U/L (16-63) Alkaline Phosphatase 91 U/L (46-116) Troponin I Quantitative < 0.017 ng/mL (0.000-0.055) < 0.017 ng/mL (0.000-0.055) IY-Ijq-J-Type Natriuretic Peptide 43 pg/mL (0-449) Total Protein 7.4 g/dL (6.4-8.2) Albumin 4.1 g/dL (3.4-5.0) Albumin/Globulin Ratio 1.2 (1.0-1.7) Triglycerides Level 148 mg/dL (0-150) Cholesterol Level 149 mg/dL (0-200) LDL Cholesterol, Calculated 83 mg/dL (0-100) VLDL Cholesterol, Calculated 30 mg/dL (0-40) Non-HDL Cholesterol Calculated 113 mg/dL (0-129) HDL Cholesterol 36 mg/dL (40-60) L Cholesterol/HDL Ratio 4.1 Thyroid Stimulating Hormone (TSH) 6.154 uIU/mL (0.358-3.74) H Urine Collection Type Unknown Urine Color Yellow Urine Clarity Clear Urine pH 5.5 (<5.0-8.0) Urine Specific [place] 1.025 (1.000-1.030) Urine Protein 30 mg/dL (NEG-TRACE) Urine Glucose (UA) Negative mg/dL (NEG) Urine Ketones (Stick) Negative mg/dL (NEG) Urine Blood Large (NEG) Urine Nitrite Negative (NEG) Urine Bilirubin Negative (NEG) Urine Urobilinogen Dipstick 0.2 mg/dL (0.2 mg/dL) Urine Leukocyte Esterase Small (NEG) Urine RBC >40 /HPF (0-2) Urine WBC 5-10 /HPF (0-4) Urine Squamous Epithelial Cells Occ /LPF Urine Bacteria 0 /HPF (0-FEW) Urine Mucus Marked /LPF Laboratory Tests 11/07/20 02:18 Laboratory Tests 11/07/20 02:18 ASSESSMENT/PLAN ASSESSMENT/PLAN 1. Tinnitus 2. Prior visual deficit to right eye inferior level: resolved occurred 3 weeks ago and recently starburst in his vision with prior hx of migraine. per neurology 3. Atypical chest pain: likely MSK 4. Reported some irregular rhythm: EKG SR without acute changes. Unclear details 5. Carotid artery disease: High-grade stenosis of the proximal right ICA, estimated at 75-80% stenosis. 6. HTN; controlled 7: HLP 8. Subclinical hypothyroidism 9. Possible UTI: defer to PCP Recommendations 1. Continue ASA and statin 2. Continue BP regimen. 3. TTE today 4. Follow up with Dr. Andrea at [facility] as he is being scheduled for stress test and has not gotten a call yet in regards to date. 5. Will need vascular surgery referral if none yet ANDREI SANTOS MD 11/07/20 1327: CARDIAC CONSULT ASSESSMENT/PLAN ASSESSMENT/PLAN Patient seen and examined. Agree with MANAGING SUPERVISOR's assessment and plan. Chest pain with atypical features. Myocardial infarction has been ruled out. Check 2D echo to assess LV systolic function and rule out wall motion abnormalities. Follow-up with primary prosthetic lab technician for ischemic evaluation as previously scheduled. Continue work-up for possible TIA per neurology team. Outpatient referral to ENT for tinnitus. Vascular surgery consultation for right carotid stenosis. Thank you for your consultation. VALERIANO GARCIA APRN Nov 07, 2020 13:12 ANDREI SANTOS MD Nov 07, 2020 14:54
[2020-11-07] MEDS: ASPIRIN 325 MG TABLET PO SCH (14:00)
--- NOTE | 2020-11-07 14:59 | RAD ---
EXAM: Brain MRI without contrast. HISTORY: Transient ischemic attack. TECHNIQUE: Multiplanar, multisequence magnetic resonance imaging of the brain was performed without c ontrast. COMPARISON: CT angiogram obtained on the same date. FINDINGS: There is no restricted diffusion to suggest acute or subacute infarction. There is no susce ptibility effect to suggest hemorrhage. There is no mass effect or midline shift. There is no hydroce phalus. There is cerebral volume loss. There are few small scattered foci of signal change within the cerebral white matter, likely due to chronic small vessel disease. The orbits are unremarkable. The paranasal sinuses and mastoid air cells are unremarkable. There are normal flow voids within the cerebral vessels. There is no calvarial lesion. There is signal abnormal ity within the central canal at C2-C3 on sagittal T1-weighted images which is likely due to imaging a rtifact. There is no correlate for this finding on coronal T2-weighted images. IMPRESSION: 1. No acute intracranial finding. 2. Scattered foci of signal change within the cerebral white matter, likely due to chronic small vess el disease in a patient of this age. 3. Cerebral volume loss. Electronically signed by: Megan Roberts MD (11/07/2020 2:56 PM) [id number]
[2020-11-07 15:00] VITALS: BP 122/46
--- NOTE | 2020-11-07 15:31 | PDOC ---
Provider Note Date of Service: DATE: 11/07/20 TIME: 15:22 Provider Note (please see full dictation) 75 yo male presents with some chest discomfort and left arm pain. He also reports transient right lower visual field loss about 3 weeks ago. He denies any unilateral weakness/numbess, speech changes or other TIA/CVA symptoms. Right eye lower vision loss may have been through to embolic disease. CT head showed no obvious CVA or mass lesion. A CTA showed short segment high grade (80%) proximal right internal carotid stenosis. He has high grade right internal carotid artery that may be symptomatic with amaurosis. Would continue ASA as well as good BP and Cholesterol control. He is on rosuvastatin. I outlined risks and potential benefit of medical management alone or with intervention (endarterectomy or stenting). He would be reasonable candidate for right carotid endarterectomy. He acknowledged and elected to proceed. Plan right carotid endarterectomy on Tuesday. Justifications for Admission Other Justification LINO MITCHELL MD Nov 07, 2020 15:31
[2020-11-07 19:00] VITALS: BP 122/41
[2020-11-07 23:00] VITALS: BP 129/43
[2020-11-08] VITALS (7 sets, daily range): BP systolic 98–139; BP diastolic 30–70
--- NOTE | 2020-11-08 01:52 | CONS ---
DATE OF CONSULTATION: 11/07/2020 LOCATION: He is in room 201. ATTENDING PHYSICIAN: Dr. Herrmann. The patient was seen at the request of Dr. Herrmann for rehabilitation evaluation. HISTORY: This is a 75-year-old male, admitted with bilateral hip and leg pain and arm weakness. The patient had recent MRI scan of the chest about 2-3 weeks ago with angio done and had worsening tinnitus with pain, also had some vision changes and blurry vision, which improved. The patient had some mild chest tightness and some numbness in his arms, so he was admitted for further evaluation and treatment. PAST MEDICAL HISTORY: Significant for hyperlipidemia, migraine, osteoarthritis of both hips and he was seen at [facility] for consideration of total hip arthroplasty and because of the COVID and not emergency nature per hip replacement, it was postponed. Past medical history also includes nephrolithiasis. PAST SURGICAL HISTORY: Status post tonsillectomy, adenoidectomy, prostate surgery. ALLERGIES: Not known allergic to any medication. 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 He usually walks using 2 canes. REVIEW OF SYSTEMS: He denies any trouble with his bowel or bladder control or any numbness, tingling sensation in the extremities at the present time. IMAGING STUDIES: Since admission, he had radiological studies including CT scan and MRI scan of the brain, which failed to reveal any acute abnormalities. It revealed small vessel microvascular ischemic changes and also volume loss. CT of the head and neck revealed high-grade stenosis of the proximal right internal carotid artery, estimated at 75-80% stenosis, mild narrowing of the proximal left internal carotid artery, occlusion of right external carotid artery. No evidence of aneurysm or proximal MCA branch occlusion. PHYSICAL EXAMINATION: GENERAL: Revealed an elderly male. He is alert, oriented to time, place, person and circumstance and follows commands appropriately. NEUROLOGIC: Moves all 4 extremities voluntarily, where he had 4+/5 grade muscle strength. Deep tendon reflexes are 1-2+ and symmetrical with absent ankle jerks, and he had equal perception of touch and pinprick sensation bilaterally. He had significant limitation of rotational movements at both hip joints and he complains of pain on attempted movements of his hip joints. He had intact skin at this time. No obvious visual field cut or facial asymmetry or difficulty with communication or swallowing or speech was noted at this time. ASSESSMENT: An elderly male with painful degenerative joint disease of both hips, clinical evidence of peripheral neuropathy and radiological evidence of high-grade stenosis of proximal right internal carotid artery and occlusion of right external carotid artery. RECOMMENDATION: He seems to be independent, walking using 2 canes at home and medically stable with outpatient followup by Orthopedics for consideration of total hip arthroplasty. Dr. Herrmann, I appreciate asking me to participate in the care of this interesting patient. I will be glad to see him for followup with you on an as needed basis. KAZ DR: Justus TID: [id number]
[2020-11-08] MEDS: HYDROcodone/APAP 7.5/325MG 1 TAB TABLET PO PRN ×3 (06:13→20:52)
[2020-11-08] MEDS: THIAMINE 100 MG TABLET. PO SCH ×2 (08:55→20:51)
[2020-11-08] MEDS: ASPIRIN 325 MG TABLET PO SCH (08:55)
[2020-11-08] MEDS: METOPROLOL SUCC 24HR ER 25 MG TAB.ER.24H. PO SCH (08:56)
--- NOTE | 2020-11-08 10:06 | CONS ---
DATE OF CONSULTATION: 11/07/2020 CHIEF COMPLAINT: Chest discomfort and left arm pain. HISTORY OF PRESENT ILLNESS: The patient is a 75-year-old male with hypercholesterolemia, arthritis, and history of migraines, who presents with multiple issues and most pronounced recently being chest discomfort and some left arm pain. He denies any significant shortness of breath. His chest pain was not related to activity. He also has had some ringing in his ears that has worsened recently. He has a history of previous visual migraines. He describes an episode of transient loss of vision in the lower aspect of his right eye approximately 3 weeks ago. No other similar types of visual changes. He denies any unilateral weakness, numbness, speech loss, or other lateralizing TIA or stroke symptoms. A CT of the head showed no obvious infarct or mass lesion. A CT angiogram of the neck and head demonstrated high-grade stenosis at the proximal right internal carotid artery, which was relatively focal. This resulted in at least 80% diameter narrowing. There is more mild atherosclerotic disease, with less than 50% narrowing on the left. PAST MEDICAL HISTORY: 1. Hypertension. 2. Hyperlipidemia. 3. COPD. 4. Arthritis. 5. Migraines. 6. Gastroesophageal reflux disease. PAST SURGICAL HISTORY: Tonsillectomy. CURRENT MEDICATIONS: Aspirin 325 mg daily, thiamine 100 mg b.i.d., Flomax 0.4 mg every day, Toprol-XL 50 mg every day, and rosuvastatin 40 mg every day. ALLERGIES: No known drug allergies. SOCIAL HISTORY: He smokes occasional cigarettes, less than a pack a day. He denies any alcohol use. He lives with his family. FAMILY HISTORY: He is adopted. REVIEW OF SYSTEMS: No recent fevers, chills, chest pain, or shortness of breath. He had some transient chest discomfort that has resolved. He also had some left arm discomfort that has also improved. He has chronic pain in both hips and knees limiting his activity. He denies any pain in his feet. No new TIA or stroke symptoms except for transient right lower eye vision loss as detailed above. Other 14-point review of systems is unremarkable. PHYSICAL EXAMINATION: GENERAL: This is a well-developed male in no acute distress. VITAL SIGNS: Temperature 98.5, pulse 62, blood pressure 107/58, and respirations 16. NECK: Supple. No lymphadenopathy. CARDIOVASCULAR: Regular rhythm. LUNGS: Respirations nonlabored. ABDOMEN: Soft, nontender, nondistended. No palpable masses. EXTREMITIES: He has palpable radial, femoral, popliteal, and pedal pulses bilaterally. He has very long toenails and not well kept feet, but there are no areas of skin breakdown on his lower legs or feet. NEUROLOGIC: He is awake, alert, answering questions appropriately. His face is symmetrical with midline tongue. He has equal upper and lower extremity strength at this time. No focal neurologic deficits. LABORATORY DATA: Significant for white blood cells 5.8, hemoglobin 14.0, platelet count of 179. Sodium 143, potassium 3.6, BUN 20, creatinine 1.2, glucose 91, LDL 83, and HDL 36. CT angiogram of the neck and CT head as detailed above. IMPRESSION: 1. High-grade right internal carotid artery stenosis. This may be symptomatic with transient lower right eye vision loss. 2. Atypical chest pain that has resolved. 3. Hypertension. 4. Hyperlipidemia. 5. Osteoarthritis. 6. History of migraines. RECOMMENDATIONS: 1. Continue antiplatelet therapy with aspirin daily. 2. Continue good blood pressure and cholesterol control. He is currently on rosuvastatin 40 mg daily. 3. I outlined the findings of CT angiogram. He has high-grade right internal carotid artery stenosis that may have contributed to his transient right eye lower vision loss. I outlined treatment options including continued medical management alone or with intervention (endarterectomy or stenting). Risks and potential benefits of each were outlined carefully. Risks of carotid endarterectomy include but are not limited to bleeding, infection, nerve injury, cardiac/pulmonary complications, stroke, and . He would be a reasonable candidate for right carotid endarterectomy. After discussing risks and potential benefits with him in detail, he has elected to proceed with right carotid endarterectomy. 4. Right carotid endarterectomy on Tuesday. LINDA/SHERRIE/TONYA DR: Izabella TID: [id number] CC: Deandre Yanes MD
--- NOTE | 2020-11-08 10:11 | PDOC ---
PROGRESS NOTES Date of Service DATE: 11/08/20 TIME: 10:07 Subjective Subjective He admits some visual problems with right eye this AM. Objective Objective Vital Signs Date Time Temp Pulse Resp B/P (MAP) Pulse Ox O2 Delivery O2 Flow Rate FiO2 11/08/20 08:56 69 116/45 11/08/20 07:30 Room Air 11/08/20 07:00 98.9 16 95 98.9 Intake and Output 11/08/20 07:00 Intake Total 1400 ml Output Total 600 ml Balance 800 ml Intake Oral 1400 ml Output Urine Total 600 ml # Voids 2 Physical Exam Physical Exam He is alert,siting in bedside chair and no change noted with his neurological status. Assessment Assessment Problems Medical Problems: (1) Chest pain Status: Acute (2) Stenosis of right carotid artery greater than 50% Status: Acute (3) Tinnitus Status: Acute Plan Plan of Care Agree with plans for right carotid endarterectomy scheduled for 11/10/2020. He should keep follow up appointment for total hip arthroplasty. Comment Review of Relevant I have reviewed the following items marlene (where applicable) has been applied. Labs Laboratory Tests Test 11/07/20 02:18 11/07/20 03:37 11/07/20 09:35 White Blood Count 5.8 x10^3/uL (4.0-11.0) Red Blood Count 4.71 x10^6/uL (4.30-5.70) Hemoglobin 14.0 g/dL (13.0-17.5) Hematocrit 40.8 % (39.0-53.0) Mean Corpuscular Volume 87 fL (79-100) Mean Corpuscular Hemoglobin 30 pg (25-35) Mean Corpuscular Hemoglobin Concent 34 g/dL (31-37) Red Cell Distribution Width 13.9 % (11.5-14.5) Platelet Count 179 x10^3/uL (140-400) Neutrophils (%) (Auto) 55 % (31-73) Lymphocytes (%) (Auto) 30 % (24-48) Monocytes (%) (Auto) 8 % (0-9) Eosinophils (%) (Auto) 5 % (0-3) Basophils (%) (Auto) 2 % (0-3) Neutrophils # (Auto) 3.1 x10^3/uL (1.8-7.7) Lymphocytes # (Auto) 1.7 x10^3/uL (1.0-4.8) Monocytes # (Auto) 0.5 x10^3/uL (0.0-1.1) Eosinophils # (Auto) 0.3 x10^3/uL (0.0-0.7) Basophils # (Auto) 0.1 x10^3/uL (0.0-0.2) Sodium Level 143 mmol/L (136-145) Potassium Level 3.6 mmol/L (3.5-5.1) Chloride Level 106 mmol/L (98-107) Carbon Dioxide Level 31 mmol/L (21-32) Anion Gap 6 (6-14) Blood Urea Nitrogen 20 mg/dL (8-26) Creatinine 1.2 mg/dL (0.7-1.3) Estimated GFR (Cockcroft-Gault) 59.0 BUN/Creatinine Ratio 17 (6-20) Glucose Level 91 mg/dL (70-99) Calcium Level 9.0 mg/dL (8.5-10.1) Total Bilirubin 0.3 mg/dL (0.2-1.0) Aspartate Amino Transf (AST/SGOT) 19 U/L (15-37) Alanine Aminotransferase (ALT/SGPT) 32 U/L (16-63) Alkaline Phosphatase 91 U/L (46-116) Troponin I Quantitative < 0.017 ng/mL (0.000-0.055) < 0.017 ng/mL (0.000-0.055) HA-Wlg-Q-Type Natriuretic Peptide 43 pg/mL (0-449) Total Protein 7.4 g/dL (6.4-8.2) Albumin 4.1 g/dL (3.4-5.0) Albumin/Globulin Ratio 1.2 (1.0-1.7) Triglycerides Level 148 mg/dL (0-150) Cholesterol Level 149 mg/dL (0-200) LDL Cholesterol, Calculated 83 mg/dL (0-100) VLDL Cholesterol, Calculated 30 mg/dL (0-40) Non-HDL Cholesterol Calculated 113 mg/dL (0-129) HDL Cholesterol 36 mg/dL (40-60) Cholesterol/HDL Ratio 4.1 Thyroid Stimulating Hormone (TSH) 6.154 uIU/mL (0.358-3.74) Urine Collection Type Unknown Urine Color Yellow Urine Clarity Clear Urine pH 5.5 (<5.0-8.0) Urine Specific Kennedy 1.025 (1.000-1.030) Urine Protein 30 mg/dL (NEG-TRACE) Urine Glucose (UA) Negative mg/dL (NEG) Urine Ketones (Stick) Negative mg/dL (NEG) Urine Blood Large (NEG) Urine Nitrite Negative (NEG) Urine Bilirubin Negative (NEG) Urine Urobilinogen Dipstick 0.2 mg/dL (0.2 mg/dL) Urine Leukocyte Esterase Small (NEG) Urine RBC >40 /HPF (0-2) Urine WBC 5-10 /HPF (0-4) Urine Squamous Epithelial Cells Occ /LPF Urine Bacteria 0 /HPF (0-FEW) Urine Mucus Marked /LPF Medications Current Medications Iohexol (Omnipaque 300 Mg/ml) 75 ml 1X ONCE IV Last administered on 11/07/20at 04:10; Start 11/07/20 at 03:45; Stop 11/07/20 at 03:46; Status DC Info (CONTRAST GIVEN -- Rx MONITORING) 1 each PRN DAILY PRN MC SEE COMMENTS; Start 11/07/20 at 03:45; Stop 11/09/20 at 03:44 Acetaminophen/ Hydrocodone Bitart (Lortab 7.5/325) 1 tab PRN TID PRN PO MILD TO MODERATE PAIN Last administered on 11/08/20at 06:13; Start 11/07/20 at 08:15 Metoprolol Succinate (Toprol Xl) 50 mg DAILY PO Last administered on 11/08/20at 08:56; Start 11/07/20 at 09:00 Sucralfate (Carafate) 1 gm QID PO ; Start 11/07/20 at 09:00; Stop 11/07/20 at 08:24; Status DC Tamsulosin HCl (Flomax) 0.4 mg DAILY PO Last administered on 11/07/20at 09:27; Start 11/07/20 at 09:00 Temazepam (Restoril) 30 mg PRN QHS PRN PO sleep aid; Start 11/07/20 at 08:15 Thiamine Mononitrate (Vitamin B-1) 100 mg BID PO Last administered on 11/08/20at 08:55; Start 11/07/20 at 09:00 Morphine Sulfate (Morphine Sulfate) 4 mg PRN Q2HR PRN IV SEVERE PAIN; Start 11/07/20 at 08:15 Aspirin (Smartpay Aspirin) 325 mg DAILYWBKFT PO Last administered on 11/08/20at 08:55; Start 11/07/20 at 09:00 Active Scripts Active Reported Rosuvastatin Calcium 40 Mg Tablet 1 Tab PO DAILY Hydrocodone-Acetamin 7.5-325 (Hydrocodone/Acetaminophen) 1 Each Tablet 1 Tab PO TID PRN Temazepam 30 Mg Capsule 1 Cap PO PRN QHS PRN Flomax (Tamsulosin Hcl) 0.4 Mg Cap.er.24h 0.04 Mg DAILY Metoprolol Succinate ( Xl ) (Metoprolol Succinate) 25 Mg Tab.er.24h 50 Mg DAILY Amlodipine Besylate 10 Mg Tablet 1 Tab PO DAILY MDD 10 Vitamin D (Cholecalciferol (Vitamin D3)) 5,000 Unit Tablet 5,000 Unit PO DAILY Anderson Chewable (Aspirin) 81 Mg Tab.chew 81 Mg PO DAILY Vitamin B-1 (Thiamine Mononitrate) 100 Mg Tablet 100 Mg PO BID Omeprazole 40 Mg Capsule.dr 40 Mg PO DAILY Vitals/I & O Vital Sign - Last 24 Hours 11/07/20 11/07/20 11/07/20 11/07/20 10:29 14:00 14:30 15:00 Temp 98.5 98.5 98.5 98.5 Pulse 62 61 Resp 16 18 20 18 B/P (MAP) 107/58 (74) 122/46 (71) Pulse Ox 95 95 96 O2 Delivery Room Air Room Air Room Air 11/07/20 11/07/20 11/07/20 11/08/20 19:00 19:50 23:00 02:51 Temp 97.6 99.1 98.5 97.6 99.1 98.5 Pulse 73 75 83 Resp 18 18 18 B/P (MAP) 122/41 (68) 129/43 (71) 110/64 (79) Pulse Ox 94 94 94 O2 Delivery Room Air Room Air Room Air Room Air 11/08/20 11/08/20 11/08/20 11/08/20 06:13 06:44 07:00 07:30 Temp 98.9 98.9 Pulse 69 Resp 16 16 16 B/P (MAP) 116/45 (68) Pulse Ox 96 96 95 O2 Delivery Room Air Room Air Room Air Room Air 11/08/20 08:56 Pulse 69 B/P (MAP) 116/45 Intake and Output 11/07/20 11/07/20 11/08/20 15:00 23:00 07:00 Intake Total 480 ml 800 ml 120 ml Output Total 400 ml 200 ml Balance 480 ml 400 ml -80 ml Justifications for Admission Other Justification MONICA HILLIARD MD November 08, 2020 10:11
--- NOTE | 2020-11-08 11:09 | RAD ---
Pelvis bilateral two-view left hip HISTORY: Painful degenerative changes the joints Supine AP view the pelvis obtained as well bilateral frog leg views of the hips FINDINGS: There is severe degenerative changes the hips bilaterally with subchondral cyst formation especially of the femoral heads. On the left is complete loss of joint space. There is no lytic destructive sanders ges. There is subtle collapse the femoral head superiorly on the right. IMPRESSION: 1. Severe degenerative changes of the hips left worse than right. 2. 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 Electronically signed by: Tyshawn Jackson III, MD (11/08/2020 11:07 AM) [facility]
--- NOTE | 2020-11-08 11:17 | PDOC ---
[facility] PROGRESS NOTE Date of Service DOS: DATE: 11/08/20 TIME: 11:16 Chief Complaint Chief Complaint TIA, dizzyness and weakness, right carotid stenosis, vascular to do endarterectomy on tuesday L4-L5 stensoss CHF, CV consulted weakness, and hip pain, consult physiatry, ongoing back pain and leg weakess admit, mult problems History of Present Illness History of Present Illness right eye blurry today still weak, back pain today, not hip pain seen by physiatry today, discussed, he has had work done at [employer] and should f/u there. Vitals/I&O Vitals/I&O: Vital Signs Date Time Temp Pulse Resp B/P (MAP) Pulse Ox O2 Delivery O2 Flow Rate FiO2 11/08/20 10:38 98.7 69 16 114/48 (70) 97 Room Air 98.7 I & O 11/07/20 11/07/20 11/08/20 15:00 23:00 07:00 Intake Total 480 ml 800 ml 120 ml Output Total 400 ml 200 ml Balance 480 ml 400 ml -80 ml Physical Exam General: Alert, Oriented X3, Cooperative, No acute distress Heart: Regular rate (SR), Normal S1, Normal S2, No murmurs Abdomen: Soft, No tenderness Extremities: No cyanosis, No edema Skin: No breakdown, No significant lesion Review of Systems Review of Systems: no nv.d Assessment and Plan Assessmemt and Plan Problems Medical Problems: (1) Chest pain Status: Acute (2) Stenosis of right carotid artery greater than 50% Status: Acute (3) Tinnitus Status: Acute Comment Review of Relevant I have reviewed the following items marlene (where applicable) has been applied. Justifications for Admission Other Justification MARCO ROMERO MD November 08, 2020 11:17
--- NOTE | 2020-11-08 14:16 | CONS ---
DATE OF CONSULTATION: 11/08/2020 PODIATRIC CONSULTATION REASON FOR CONSULTATION: Evaluate and treat longstanding mycotic nails of all feet. REVIEW OF RECORD: This 75-year-old male was admitted with some hip pain, leg pain and arm weakness. He had multiple complaints reported with recent MRI with angiogram done and complains of worsening tinnitus with pain. He has some vision changes, some blurred vision that is now improved. He has some mild chest tightness with some numbness in his arms. PAST MEDICAL HISTORY: Positive for hyperlipidemia, migraines, osteoarthritis; he was scheduled for bilateral hip replacement at , but was postponed due to COVID; nephrolithiasis. PAST SURGICAL HISTORY: Tonsillectomy and prostate. SOCIAL HISTORY: Nonsmoker. Alcohol: None. Drugs: None. MEDICATIONS: Reviewed including rosuvastatin 40 mg, hydrocodone/acetaminophen 7.5/325, Flomax, metoprolol, amlodipine 10 mg, vitamin D, aspirin 81 mg, vitamin B1, omeprazole ____. ALLERGIES: No known drug allergies. The patient has elongated mycotic nails of all digits with subungual debris underneath all nail plates to some degrees, hallux nails more significant, decreased turgor, absence of hair growth. PHYSICAL EXAMINATION: VASCULAR: Pedal pulses are palpated, slightly diminished at +2/4 dorsalis pedis, posterior tibial. SKIN: Skin temperature within normal limits. MUSCULOSKELETAL: No significant bunion or hammertoe deformities contributory to his problem. NEUROLOGIC: The patient appears to have normal sensorium. He relates no numbness, burning or tingling. ASSESSMENT: Clinical evidence of painful longstanding onychomycosis, onychocryptosis, onycholysis of all 10 toes. PLAN: Debridement of all mycotic nails performed due to severity. No hemorrhage incurred. Advised the patient maintenance care every 2-1/2 to 3 months would be my initial recommendations. Noted is, he will be having endarterectomy of his carotid on Tuesday. BETO/ONDINA/MOH DR: BETO/kirsty TID: [id number]
--- NOTE | 2020-11-08 16:12 | CARD ---
MR#: [id number] Date of Study: 11/07/2020 Ordering Physician: JENNIFER ESCUDERO, Referring Physician: JENNIFER ESCUDERO, Tech: Alicia Gallo [facility] APPROVED REPORT EXAM: Two-dimensional and M-mode echocardiogram with Doppler and color Doppler. Other Information Quality : AverageHR: 69bpm Rhythm : NSR INDICATION CVA/TIA Echo Enhancing Agent Indication: Rule Out Septal Defect Agent/Amount Used: Agitated Saline mL RISK FACTORS Hypertension Smoking 2D DIMENSIONS Left Atrium(2D)3.1 (1.6-4.0cm)IVSd1.3 (0.7-1.1cm) Aortic Root(2D)3.4 (2.0-3.7cm)LVDd3.5 (3.9-5.9cm) LVOT Diameter2.0 (1.8-2.4cm)PWd1.3 (0.7-1.1cm) LVDs2.0 (2.5-4.0cm)FS (%) 42.4 % SV36.6 mlLVEF(%)74.5 (>50%) Aortic Valve AoV Peak John.168.1cm/sAoV VTI32.7cm AO Peak GR.11.3mmHgLVOT Peak John.111.8cm/s AO Mean GR.6mmHgAVA (VMAX)2.08cm2 Mitral Valve MV E Sjnuzwjg67.8cm/sMV DECEL [id number] MV A Kgdvrveb39.1cm/sE/A Ratio0.9 Tricuspid Valve TR P. Tcssgkke159mb/sTR Peak Gr.29mmHg Pulmonary Vein S1 Pibnclde53.2cm/sD2 Evnytoll55.9cm/s PVa [id number] LEFT VENTRICLE The left ventricle is normal size. There is mild concentric left ventricular hypertrophy. The left ve ntricular systolic function is normal. Estimated ejection fraction 60-65%. There is normal LV segmen ambrose wall motion. Transmitral Doppler flow pattern is Grade I-abnormal relaxation pattern. RIGHT VENTRICLE The right ventricle is normal size. There is normal right ventricular wall thickness. The right ventr icular systolic function is normal. ATRIA The left atrium size is normal. The right atrium size is normal. The interatrial septum is intact wit h no evidence for an atrial septal defect or patent foramen ovale as noted on 2-D or Doppler imaging. AORTIC VALVE The aortic valve is normal in structure and function. Doppler and Color Flow revealed no significant aortic regurgitation. There is no significant aortic valvular stenosis. MITRAL VALVE The mitral valve is normal in structure and function. There is no evidence of mitral valve prolapse. There is no mitral valve stenosis. Doppler and Color Flow revealed no mitral valve regurgitation note d. TRICUSPID VALVE The tricuspid valve is normal in structure and function. Doppler and Color Flow revealed trace to mil d tricuspid regurgitation. Estimated PAP 32 mmHg. There is no tricuspid valve stenosis. PULMONIC VALVE The pulmonary valve is normal in structure and function. Doppler and Color Flow revealed mild pulmoni c valvular regurgitation. GREAT VESSELS The aortic root is normal in size. The ascending aorta is normal in size. The IVC is normal in size a nd collapses >50% with inspiration. PERICARDIAL EFFUSION There is no evidence of significant pericardial effusion. Critical Notification Critical Value: No <Conclusion> The left ventricular systolic function is normal. Estimated ejection fraction 60-65%. There is normal LV segmental wall motion. Transmitral Doppler flow pattern is Grade I-abnormal relaxation pattern. Trace to mild tricuspid regurgitation. Estimated PAP 32 mmHg. There is no evidence of significant pericardial effusion. Signed by : Quoc Wan, Electronically Approved : 11/08/2020 16:11:50
--- NOTE | 2020-11-08 22:56 | CONS ---
DATE OF CONSULTATION: 11/08/2020 ORTHOPEDIC CONSULTATION REQUESTING PHYSICIAN: MONICA HILLIARD MD. REASON FOR CONSULTATION: Bilateral hip pain. HISTORY OF PRESENT ILLNESS: The patient is a 75-year-old male who presented with some weakness as well as visual changes and was noted to have some blockage in his carotid, scheduled for surgical correction as he said he moves his neck, he is losing some sight in his right eye. Intermittently, he has had longstanding bilateral hip pain and was actually contemplating hip surgery in the past, was scheduled at [facility], but apparently due to COVID and multiple other reasons, he was delayed. PAST MEDICAL HISTORY: Significant for hyperlipidemia and migraine headaches with stroke-like symptoms as well as osteoarthritis and kidney stones. PAST SURGICAL HISTORY: Tonsil adenoidectomy and prostate surgery FAMILY HISTORY: Denies any significant family history. SOCIAL HISTORY: No smoking, alcohol or drug use. 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 REVIEW OF SYSTEMS: He walks with two canes, one in each hand, he has been told that he should walk with a walker and also significant for the right-sided weakness and transitory visual changes. ALLERGIES: He has no known drug allergies. MEDICATION LIST: Reviewed. PHYSICAL EXAMINATION: He has very limited range of motion of either hip and pain on any extremes. He has a negative straight leg raise bilaterally. No tenderness over the trochanteric bursa on either side. Normal alignment, stability, bilateral knees and ankles. Otherwise, motor function and distal pulses sensation are intact in both lower extremities throughout. IMAGING DATA: X-rays show severe degenerative change in bilateral hips with some superior collapse of the femoral head on the left side and severe bone on bone degenerative change on the right without evidence of collapse. IMPRESSION: 1. Bilateral hip pain with degenerative joint disease. 2. Carotid stenosis with transitory visual changes and some weakness. TREATMENT PLAN: At the present time, obviously the carotid stenosis is most pressing issue. We had talked through the options for treatment of his hips including bilateral canes or walking sticks and the rationale for those to decrease some of the rotational forces on the hips and we did talk through the risks, benefits, postoperative course of total hip arthroplasty as well. He was interested in seeing a model of the hips, which I told him I could show him in the office to explain more fully. We did talk through the general restrictions after the procedure and then postoperative course as well and that this would really be planned more on the outpatient basis with hopeful resolution of his carotid symptoms with upcoming surgery and other medical workup as necessary. All his questions were answered and I gave him contact information for outpatient evaluation at our office. VALE/STUART/MAURO DR: Vimal TID: [id number]
[2020-11-09 03:00] VITALS: BP 114/41
[2020-11-09 07:00] VITALS: BP 103/40
[2020-11-09] MEDS: METOPROLOL SUCC 24HR ER 25 MG TAB.ER.24H. PO SCH (07:43)
[2020-11-09] MEDS: THIAMINE 100 MG TABLET. PO SCH ×2 (08:22→20:52)
[2020-11-09] MEDS: TAMSULOSIN 0.4 MG CAP.ER.24H. PO SCH (08:22)
[2020-11-09] MEDS: HYDROcodone/APAP 7.5/325MG 1 TAB TABLET PO PRN ×2 (08:22→20:54)
[2020-11-09] MEDS: ASPIRIN 325 MG TABLET PO SCH (08:22)
--- NOTE | 2020-11-09 10:13 | PDOC ---
PROGRESS NOTES Date of Service DATE: 11/09/20 TIME: 10:10 Subjective Subjective He is without new complaints. Denies any new vision changes, weakness/numbness, or speech difficulty. He has symptomatic high grade right internal carotid stenosis. No chest pain or shortness of breath. Objective Objective Vital Signs Date Time Temp Pulse Resp B/P (MAP) Pulse Ox O2 Delivery O2 Flow Rate FiO2 11/09/20 08:52 16 97 Room Air 11/09/20 07:43 55 103/40 11/09/20 07:00 98.4 98.4 Intake and Output 11/09/20 07:00 Intake Total 730 ml Output Total 675 ml Balance 55 ml Intake Oral 730 ml Output Urine Total 675 ml # Voids 2 Physical Exam Abdomen: Soft, No tenderness Heart: Regular rate Extremities: No edema General: Alert, No acute distress Lungs: Normal air movement Neck: Supple Neuro: Other (Awake and alert, equal strength, no focal deficits) Assessment Assessment Problems Medical Problems: (1) Chest pain Status: Acute (2) Stenosis of right carotid artery greater than 50% Status: Acute (3) Tinnitus Status: Acute HTN Plan Plan of Care He has critical right internal carotid stenosis with transient right eye vision loss consistent with amaurosis fugax. He is on aspirin daily. Will plan right carotid endarterectomy tomorrow. Questions answered. Comment Review of Relevant I have reviewed the following items marlene (where applicable) has been applied. Labs Laboratory Tests Test 11/09/20 09:17 SARS-CoV-2 Antigen (Rapid) Negative (NEGATIVE) Laboratory Tests Test 11/09/20 09:17 SARS-CoV-2 Antigen (Rapid) Negative (NEGATIVE) Medications Current Medications Iohexol (Omnipaque 300 Mg/ml) 75 ml 1X ONCE IV Last administered on 11/07/20at 04:10; Start 11/07/20 at 03:45; Stop 11/07/20 at 03:46; Status DC Info (CONTRAST GIVEN -- Rx MONITORING) 1 each PRN DAILY PRN MC SEE COMMENTS; Start 11/07/20 at 03:45; Stop 11/09/20 at 03:44; Status DC Acetaminophen/ Hydrocodone Bitart (Lortab 7.5/325) 1 tab PRN TID PRN PO MILD TO MODERATE PAIN Last administered on 11/09/20at 08:22; Start 11/07/20 at 08:15 Metoprolol Succinate (Toprol Xl) 50 mg DAILY PO Last administered on 11/08/20at 08:56; Start 11/07/20 at 09:00 Sucralfate (Carafate) 1 gm QID PO ; Start 11/07/20 at 09:00; Stop 11/07/20 at 08:24; Status DC Tamsulosin HCl (Flomax) 0.4 mg DAILY PO Last administered on 11/09/20at 08:22; Start 11/07/20 at 09:00 Temazepam (Restoril) 30 mg PRN QHS PRN PO sleep aid; Start 11/07/20 at 08:15 Thiamine Mononitrate (Vitamin B-1) 100 mg BID PO Last administered on 11/09/20at 08:22; Start 11/07/20 at 09:00 Morphine Sulfate (Morphine Sulfate) 4 mg PRN Q2HR PRN IV SEVERE PAIN; Start 11/07/20 at 08:15 Aspirin (Walltik Aspirin) 325 mg DAILYWBKFT PO Last administered on 11/09/20at 08:22; Start 11/07/20 at 09:00 Active Scripts Active Reported Rosuvastatin Calcium 40 Mg Tablet 1 Tab PO DAILY Hydrocodone-Acetamin 7.5-325 (Hydrocodone/Acetaminophen) 1 Each Tablet 1 Tab PO TID PRN Temazepam 30 Mg Capsule 1 Cap PO PRN QHS PRN Flomax (Tamsulosin Hcl) 0.4 Mg Cap.er.24h 0.04 Mg DAILY Metoprolol Succinate ( Xl ) (Metoprolol Succinate) 25 Mg Tab.er.24h 50 Mg DAILY Amlodipine Besylate 10 Mg Tablet 1 Tab PO DAILY MDD 10 Vitamin D (Cholecalciferol (Vitamin D3)) 5,000 Unit Tablet 5,000 Unit PO DAILY Anderson Chewable (Aspirin) 81 Mg Tab.chew 81 Mg PO DAILY Vitamin B-1 (Thiamine Mononitrate) 100 Mg Tablet 100 Mg PO BID Omeprazole 40 Mg Capsule.dr 40 Mg PO DAILY Vitals/I & O Vital Sign - Last 24 Hours 11/08/20 11/08/20 11/08/20 11/08/20 10:38 14:44 15:35 16:05 Temp 98.7 98.8 98.7 98.8 Pulse 69 70 Resp 16 18 16 16 B/P (MAP) 114/48 (70) 115/49 (71) Pulse Ox 97 97 97 O2 Delivery Room Air Room Air Room Air Room Air 11/08/20 11/08/20 11/08/20 11/08/20 19:41 20:19 20:52 21:22 Temp 98.0 98.0 Pulse 79 Resp 16 B/P (MAP) 139/70 (93) Pulse Ox 97 O2 Delivery Room Air Room Air Room Air Room Air 11/08/20 11/08/20 11/09/20 11/09/20 22:56 23:08 03:00 07:00 Temp 98.5 97.9 98.4 98.5 97.9 98.4 Pulse 63 60 60 64 Resp 18 16 16 B/P (MAP) 98/30 (52) 124/37 (66) 114/41 (65) 103/40 (61) Pulse Ox 95 94 97 O2 Delivery Room Air Room Air Room Air 11/09/20 11/09/20 11/09/20 11/09/20 07:30 07:43 08:22 08:52 Pulse 55 Resp 16 16 B/P (MAP) 103/40 Pulse Ox 97 O2 Delivery Room Air Room Air Room Air Intake and Output 11/08/20 11/08/20 11/09/20 15:00 23:00 07:00 Intake Total 440 ml 290 ml 0 ml Output Total 250 ml 425 ml Balance 440 ml 40 ml -425 ml Justifications for Admission Other Justification LINO MITCHELL MD November 09, 2020 10:13
[2020-11-09 11:00] VITALS: BP_SYST 115; BP_DIAS 36; BP_DIAS 63
--- NOTE | 2020-11-09 12:55 | PDOC ---
[facility] PROGRESS NOTE Date of Service DOS: DATE: 11/09/20 TIME: 12:54 Chief Complaint Chief Complaint TIA, dizzyness and weakness, amaurosis fugax. right carotid stenosis, vascular to do endarterectomy on tuesday L4-L5 stensoss CHF, CV consulted weakness, and hip pain, consult physiatry, ongoing back pain and leg weakess admit, mult problems History of Present Illness History of Present Illness He has critical right internal carotid stenosis and plan for right carotid endarterectomy tomorrow. still weak, Vitals/I&O Vitals/I&O: Vital Signs Date Time Temp Pulse Resp B/P (MAP) Pulse Ox O2 Delivery O2 Flow Rate FiO2 11/09/20 11:00 98.1 56 16 115/63 (80) 97 Room Air 98.1 I & O 11/08/20 11/08/20 11/09/20 15:00 23:00 07:00 Intake Total 440 ml 290 ml 0 ml Output Total 250 ml 425 ml Balance 440 ml 40 ml -425 ml Physical Exam General: Alert, No acute distress Heart: Regular rate Abdomen: Soft, No tenderness Extremities: No edema Skin: No breakdown, No significant lesion Labs Labs: Laboratory Tests Test 11/09/20 09:17 SARS-CoV-2 RNA (MEGGAN) Negative (Negative) SARS-CoV-2 Antigen (Rapid) Negative (NEGATIVE) Assessment and Plan Assessmemt and Plan Problems Medical Problems: (1) Chest pain Status: Acute (2) Stenosis of right carotid artery greater than 50% Status: Acute (3) Tinnitus Status: Acute Comment Review of Relevant I have reviewed the following items marlene (where applicable) has been applied. Justifications for Admission Other Justification MARCO ROMERO MD November 09, 2020 12:55
[2020-11-09 15:00] VITALS: BP 138/31
[2020-11-09 19:54] VITALS: BP 124/53
[2020-11-09 22:47] VITALS: BP 136/38
[2020-11-09] MEDS: TEMAZEPAM 15 MG CAPSULE PO PRN (23:15)
[2020-11-10 04:18] LABS: HEMATOCRIT 36.4 % (39.0-53.0); HEMOGLOBIN 12.2 g/dL (13.0-17.5); RED BLOOD COUNT 4.16 x10^6/uL (4.30-5.70); RED CELL DISTRIBUTION WIDTH 14.1 % (11.5-14.5); WHITE BLOOD COUNT 5.4 x10^3/uL (4.0-11.0)
[2020-11-10 04:29] LABS: GFR 72.8
[2020-11-10 07:00] VITALS: BP 116/47
[2020-11-10] MEDS ORDERED: LIDOCAINE 1% PF 2 ML VIAL. ONE (07:16)
[2020-11-10] MEDS ORDERED: MIDAZOLAM HCL/PF 2 MG/2 ML VIAL. ONE ×2 (07:16→10:59)
[2020-11-10] MEDS ORDERED: ROPIVacaine 0.5% PF 20 ML VIAL. ONE (07:26)
[2020-11-10] MEDS ORDERED: niCARdipine INJ. IV ONE ×2 (08:13)
[2020-11-10] MEDS ORDERED: HEPARIN for IV BOLUS 10,000 UNIT/10 ML VIAL. ONE (08:13)
[2020-11-10] MEDS ORDERED: PHENYLEPHRINE 10 MG/ML VIAL. ONE (08:13)
[2020-11-10] MEDS ORDERED: HYDROmorphone 2 MG/ML VIAL IVP PRN (08:15)
[2020-11-10] MEDS ORDERED: fentaNYL PF VIAL 100 MCG/2 ML VIAL IVP PRN (08:15)
[2020-11-10] MEDS ORDERED: PROCHLORPERAZINE 10 MG/2 ML VIAL. IVP PRN (08:15)
[2020-11-10] MEDS ORDERED: IV RINGERS,LACTATED 1000ML 1,000 ML IV SCH (08:15)
[2020-11-10] MEDS ORDERED: MORPHINE SULFATE 2 MG/ML VIAL. IVP PRN (08:15)
[2020-11-10] MEDS ORDERED: GLYCOPYRROLATE 1 MG/5 ML VIAL. ONE (08:15)
[2020-11-10] MEDS: METOPROLOL SUCC 24HR ER 25 MG TAB.ER.24H. PO SCH (09:00)
--- NOTE | 2020-11-10 09:14 | PDOC ---
PROGRESS NOTES Date of Service DATE: 11/10/20 TIME: 09:12 Subjective Subjective No new complaints. Objective Objective Vital Signs Date Time Temp Pulse Resp B/P (MAP) Pulse Ox O2 Delivery O2 Flow Rate FiO2 11/10/20 08:00 Room Air 11/10/20 07:00 97.6 57 20 116/47 (70) 95 97.6 Intake and Output 11/10/20 07:00 Intake Total 640 ml Output Total 775 ml Balance -135 ml Intake Oral 640 ml Output Urine Total 775 ml # Voids 2 Physical Exam Physical Exam He is supine in bed and comfortable and looking forward to carotid endarterectomy later this AM. X-ray of pelvis and hips revealed worsening DJD of both hips. Appreciate 's consult note. Assessment Assessment Problems Medical Problems: (1) Chest pain Status: Acute (2) Stenosis of right carotid artery greater than 50% Status: Acute (3) Tinnitus Status: Acute Plan Plan of Care Agree with present care plans. Comment Review of Relevant I have reviewed the following items marlene (where applicable) has been applied. Labs Laboratory Tests Test 11/09/20 09:17 11/10/20 03:20 SARS-CoV-2 RNA (MEGGAN) Negative (Negative) SARS-CoV-2 Antigen (Rapid) Negative (NEGATIVE) White Blood Count 5.4 x10^3/uL (4.0-11.0) Red Blood Count 4.16 x10^6/uL (4.30-5.70) Hemoglobin 12.2 g/dL (13.0-17.5) Hematocrit 36.4 % (39.0-53.0) Mean Corpuscular Volume 87 fL (79-100) Mean Corpuscular Hemoglobin 29 pg (25-35) Mean Corpuscular Hemoglobin Concent 33 g/dL (31-37) Red Cell Distribution Width 14.1 % (11.5-14.5) Platelet Count 148 x10^3/uL (140-400) Sodium Level 144 mmol/L (136-145) Potassium Level 4.0 mmol/L (3.5-5.1) Chloride Level 108 mmol/L (98-107) Carbon Dioxide Level 28 mmol/L (21-32) Anion Gap 8 (6-14) Blood Urea Nitrogen 18 mg/dL (8-26) Creatinine 1.0 mg/dL (0.7-1.3) Estimated GFR (Cockcroft-Gault) 72.8 Glucose Level 104 mg/dL (70-99) Calcium Level 8.0 mg/dL (8.5-10.1) Laboratory Tests Test 11/09/20 09:17 11/10/20 03:20 SARS-CoV-2 RNA (MEGGAN) Negative (Negative) SARS-CoV-2 Antigen (Rapid) Negative (NEGATIVE) White Blood Count 5.4 x10^3/uL (4.0-11.0) Red Blood Count 4.16 x10^6/uL (4.30-5.70) Hemoglobin 12.2 g/dL (13.0-17.5) Hematocrit 36.4 % (39.0-53.0) Mean Corpuscular Volume 87 fL (79-100) Mean Corpuscular Hemoglobin 29 pg (25-35) Mean Corpuscular Hemoglobin Concent 33 g/dL (31-37) Red Cell Distribution Width 14.1 % (11.5-14.5) Platelet Count 148 x10^3/uL (140-400) Sodium Level 144 mmol/L (136-145) Potassium Level 4.0 mmol/L (3.5-5.1) Chloride Level 108 mmol/L (98-107) Carbon Dioxide Level 28 mmol/L (21-32) Anion Gap 8 (6-14) Blood Urea Nitrogen 18 mg/dL (8-26) Creatinine 1.0 mg/dL (0.7-1.3) Estimated GFR (Cockcroft-Gault) 72.8 Glucose Level 104 mg/dL (70-99) Calcium Level 8.0 mg/dL (8.5-10.1) Medications Current Medications Iohexol (Omnipaque 300 Mg/ml) 75 ml 1X ONCE IV Last administered on 11/07/20at 04:10; Start 11/07/20 at 03:45; Stop 11/07/20 at 03:46; Status DC Info (CONTRAST GIVEN -- Rx MONITORING) 1 each PRN DAILY PRN MC SEE COMMENTS; Start 11/07/20 at 03:45; Stop 11/09/20 at 03:44; Status DC Acetaminophen/ Hydrocodone Bitart (Lortab 7.5/325) 1 tab PRN TID PRN PO MILD TO MODERATE PAIN Last administered on 11/09/20at 20:54; Start 11/07/20 at 08:15 Metoprolol Succinate (Toprol Xl) 50 mg DAILY PO Last administered on 11/08/20at 08:56; Start 11/07/20 at 09:00 Sucralfate (Carafate) 1 gm QID PO ; Start 11/07/20 at 09:00; Stop 11/07/20 at 08:24; Status DC Tamsulosin HCl (Flomax) 0.4 mg DAILY PO Last administered on 11/09/20at 08:22; Start 11/07/20 at 09:00 Temazepam (Restoril) 30 mg PRN QHS PRN PO sleep aid Last administered on 11/09/20at 23:15; Start 11/07/20 at 08:15 Thiamine Mononitrate (Vitamin B-1) 100 mg BID PO Last administered on 11/09/20at 20:52; Start 11/07/20 at 09:00 Morphine Sulfate (Morphine Sulfate) 4 mg PRN Q2HR PRN IV SEVERE PAIN; Start 11/07/20 at 08:15 Aspirin (Anderson Aspirin) 325 mg DAILYWBKFT PO Last administered on 11/09/20at 08:22; Start 11/07/20 at 09:00 Phenylephrine HCl (Blaine-Synephrine Inj) 10 mg STK-MED ONCE .ROUTE ; Start 11/10/20 at 08:13; Stop 11/10/20 at 08:13; Status DC Nicardipine HCl (Cardene) 25 mg STK-MED ONCE IV ; Start 11/10/20 at 08:13; Stop 11/10/20 at 08:13; Status DC Nicardipine HCl (Cardene) 25 mg STK-MED ONCE IV ; Start 11/10/20 at 08:13; Stop 11/10/20 at 08:14; Status DC Heparin Sodium (Porcine) (Heparin Sodium) 10,000 unit STK-MED ONCE .ROUTE ; Start 11/10/20 at 08:13; Stop 11/10/20 at 08:14; Status DC Fentanyl Citrate (Fentanyl 2ml Vial) 25 mcg PRN Q5MIN PRN IVP MILD PAIN 1-3; Start 11/10/20 at 08:15; Stop 11/11/20 at 08:14 Fentanyl Citrate (Fentanyl 2ml Vial) 50 mcg PRN Q5MIN PRN IVP MODERATE PAIN 4- 6; Start 11/10/20 at 08:15; Stop 11/11/20 at 08:14 Morphine Sulfate (Morphine Sulfate) 1 mg PRN Q10MIN PRN IVP SEVERE PAIN 7-10; Start 11/10/20 at 08:15; Stop 11/11/20 at 08:14 Ringer's Solution 1,000 ml @ 30 mls/hr Q24H IV ; Start 11/10/20 at 08:15; Stop 11/10/20 at 20:14 Hydromorphone HCl (Dilaudid) 0.5 mg PRN Q10MIN PRN IVP SEVERE PAIN 7-10, 2nd CHOICE; Start 11/10/20 at 08:15; Stop 11/11/20 at 08:14 Prochlorperazine Edisylate (Compazine) 5 mg PACU PRN PRN IVP NAUSEA, MRX1; Start 11/10/20 at 08:15; Stop 11/11/20 at 08:14 Glycopyrrolate (Robinul) 1 mg STK-MED ONCE .ROUTE ; Start 11/10/20 at 08:15; Stop 11/10/20 at 08:16; Status DC Active Scripts Active Reported Rosuvastatin Calcium 40 Mg Tablet 1 Tab PO DAILY Hydrocodone-Acetamin 7.5-325 (Hydrocodone/Acetaminophen) 1 Each Tablet 1 Tab PO TID PRN Temazepam 30 Mg Capsule 1 Cap PO PRN QHS PRN Flomax (Tamsulosin Hcl) 0.4 Mg Cap.er.24h 0.04 Mg DAILY Metoprolol Succinate ( Xl ) (Metoprolol Succinate) 25 Mg Tab.er.24h 50 Mg DAILY Amlodipine Besylate 10 Mg Tablet 1 Tab PO DAILY MDD 10 Vitamin D (Cholecalciferol (Vitamin D3)) 5,000 Unit Tablet 5,000 Unit PO DAILY Anderson Chewable (Aspirin) 81 Mg Tab.chew 81 Mg PO DAILY Vitamin B-1 (Thiamine Mononitrate) 100 Mg Tablet 100 Mg PO BID Omeprazole 40 Mg Capsule.dr 40 Mg PO DAILY Vitals/I & O Vital Sign - Last 24 Hours 11/09/20 11/09/20 11/09/20 11/09/20 11:00 15:00 19:39 19:54 Temp 98.1 97.9 98.4 98.1 97.9 98.4 Pulse 56 67 75 Resp 16 18 16 B/P (MAP) 115/36 (62) 138/31 (66) 124/53 (76) Pulse Ox 97 96 96 O2 Delivery Room Air Room Air Room Air Room Air 11/09/20 11/09/20 11/09/20 11/10/20 20:54 21:24 22:47 07:00 Temp 98.1 97.6 98.1 97.6 Pulse 66 57 Resp 18 18 18 20 B/P (MAP) 136/38 (70) 116/47 (70) Pulse Ox 96 95 O2 Delivery Room Air Room Air Room Air 11/10/20 08:00 O2 Delivery Room Air Intake and Output 11/09/20 11/09/20 11/10/20 15:00 23:00 07:00 Intake Total 360 ml 280 ml 0 ml Output Total 300 ml 300 ml 175 ml Balance 60 ml -20 ml -175 ml Justifications for Admission Other Justification MONICA HILLIARD MD November 10, 2020 09:14
[2020-11-10] MEDS ORDERED: SURGICEL FIBRILLAR 1X2 EACH. ONE (09:28)
[2020-11-10] MEDS ORDERED: LIDOCAINE 1% PF 30 ML VIAL. ONE (09:28)
--- NOTE | 2020-11-10 09:46 | PDOC ---
Provider Note Date of Service: DATE: 11/10/20 TIME: 09:45 Provider Note He is without new complaints. He has symptomatic right internal carotid stenosis with right eye amaurosis. Plan right carotid endarterectomy. Questions answered. Justifications for Admission Other Justification LINO MITCHELL MD November 10, 2020 09:46
[2020-11-10] MEDS ORDERED: MORPHINE SULFATE 2 MG/ML VIAL. IV PRN (10:00)
[2020-11-10] MEDS ORDERED: 0.9 % SODIUM CHLORIDE 10 ML DISP.SYRIN. IV PRN (10:00)
[2020-11-10] MEDS ORDERED: ONDANSETRON PF 4 MG/2 ML VIAL. IVP PRN (10:00)
[2020-11-10] MEDS ORDERED: LABETALOL 20 MG/4 ML DISP.SYRIN. IVP PRN (10:00)
[2020-11-10] MEDS ORDERED: HEPARIN SODIUM 5,000 UNIT in IV NORMAL SALINE 500ML BAG 500 ML IRR ONE (10:00)
[2020-11-10] MEDS ORDERED: hydrALAZINE 20 MG/ML VIAL. IVP PRN (10:00)
[2020-11-10] MEDS ORDERED: PROCHLORPERAZINE 10 MG/2 ML VIAL. IV PRN (10:00)
[2020-11-10] MEDS ORDERED: IV NORMAL SALINE 1000ML BAG 1,000 ML IV SCH (10:00)
[2020-11-10] MEDS ORDERED: HYDROcodone/APAP 5/325MG 1 TAB TABLET PO PRN (10:00)
[2020-11-10] MEDS ORDERED: fentaNYL PF VIAL 100 MCG/2 ML VIAL ONE ×2 (10:05→12:06)
--- NOTE | 2020-11-10 10:57 | PDOC ---
PROGRESS NOTES Date of Service DATE: 11/10/20 TIME: 10:53 Assessment Problems Medical Problems: (1) Chest pain Status: Acute (2) Stenosis of right carotid artery greater than 50% Status: Acute (3) Tinnitus Status: Acute High-grade stenosis of the proximal right ICA, estimated at 75-80% stenosis, mild narrowing of the proximal left ICA. He had an episode of altitudinal visual field defect inferiorly, which is somewhat atypical for embolic phe nomenon, but still possible Tinnitus following exposure to noise in an MRI scanner Chest pain and left arm pain and numbness, probably cardiac versus GI versus the usual chest pain etiologies. I doubt this was a transient ischemic attack. 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 Subjective No current complaints Objective Vital Signs Date Time Temp Pulse Resp B/P (MAP) Pulse Ox O2 Delivery O2 Flow Rate FiO2 11/10/20 09:54 97.8 68 18 142/60 96 Room Air 97.8 Intake and Output 11/10/20 07:00 Intake Total 640 ml Output Total 775 ml Balance -135 ml Intake Oral 640 ml Output Urine Total 775 ml # Voids 2 PHYSICAL EXAM Alert. Oriented to time, place and person. PERRL. EOMI. CN: no focal findings. Muscle tone: normal. Muscle strength: 5/5 DTR: 2+ Plantar reflex: Flexor Gait: not examined in bed. Sensory exam: no abnormal findings. No cerebellar signs elicited. Review of Relevant I have reviewed the following items marlene (where applicable) has been applied. Labs Laboratory Tests Test 11/09/20 09:17 11/10/20 03:20 SARS-CoV-2 RNA (MEGGAN) Negative (Negative) SARS-CoV-2 Antigen (Rapid) Negative (NEGATIVE) White Blood Count 5.4 x10^3/uL (4.0-11.0) Red Blood Count 4.16 x10^6/uL (4.30-5.70) Hemoglobin 12.2 g/dL (13.0-17.5) Hematocrit 36.4 % (39.0-53.0) Mean Corpuscular Volume 87 fL (79-100) Mean Corpuscular Hemoglobin 29 pg (25-35) Mean Corpuscular Hemoglobin Concent 33 g/dL (31-37) Red Cell Distribution Width 14.1 % (11.5-14.5) Platelet Count 148 x10^3/uL (140-400) Sodium Level 144 mmol/L (136-145) Potassium Level 4.0 mmol/L (3.5-5.1) Chloride Level 108 mmol/L (98-107) Carbon Dioxide Level 28 mmol/L (21-32) Anion Gap 8 (6-14) Blood Urea Nitrogen 18 mg/dL (8-26) Creatinine 1.0 mg/dL (0.7-1.3) Estimated GFR (Cockcroft-Gault) 72.8 Glucose Level 104 mg/dL (70-99) Calcium Level 8.0 mg/dL (8.5-10.1) Laboratory Tests Test 11/10/20 03:20 White Blood Count 5.4 x10^3/uL (4.0-11.0) Red Blood Count 4.16 x10^6/uL (4.30-5.70) Hemoglobin 12.2 g/dL (13.0-17.5) Hematocrit 36.4 % (39.0-53.0) Mean Corpuscular Volume 87 fL (79-100) Mean Corpuscular Hemoglobin 29 pg (25-35) Mean Corpuscular Hemoglobin Concent 33 g/dL (31-37) Red Cell Distribution Width 14.1 % (11.5-14.5) Platelet Count 148 x10^3/uL (140-400) Sodium Level 144 mmol/L (136-145) Potassium Level 4.0 mmol/L (3.5-5.1) Chloride Level 108 mmol/L (98-107) Carbon Dioxide Level 28 mmol/L (21-32) Anion Gap 8 (6-14) Blood Urea Nitrogen 18 mg/dL (8-26) Creatinine 1.0 mg/dL (0.7-1.3) Estimated GFR (Cockcroft-Gault) 72.8 Glucose Level 104 mg/dL (70-99) Calcium Level 8.0 mg/dL (8.5-10.1) Medications Current Medications Iohexol (Omnipaque 300 Mg/ml) 75 ml 1X ONCE IV Last administered on 11/07/20at 04:10; Start 11/07/20 at 03:45; Stop 11/07/20 at 03:46; Status DC Info (CONTRAST GIVEN -- Rx MONITORING) 1 each PRN DAILY PRN MC SEE COMMENTS; Start 11/07/20 at 03:45; Stop 11/09/20 at 03:44; Status DC Acetaminophen/ Hydrocodone Bitart (Lortab 7.5/325) 1 tab PRN TID PRN PO MILD TO MODERATE PAIN Last administered on 11/09/20at 20:54; Start 11/07/20 at 08:15 Metoprolol Succinate (Toprol Xl) 50 mg DAILY PO Last administered on 11/08/20at 08:56; Start 11/07/20 at 09:00 Sucralfate (Carafate) 1 gm QID PO ; Start 11/07/20 at 09:00; Stop 11/07/20 at 08:24; Status DC Tamsulosin HCl (Flomax) 0.4 mg DAILY PO Last administered on 11/09/20at 08:22; Start 11/07/20 at 09:00 Temazepam (Restoril) 30 mg PRN QHS PRN PO sleep aid Last administered on 11/09/20at 23:15; Start 11/07/20 at 08:15 Thiamine Mononitrate (Vitamin B-1) 100 mg BID PO Last administered on 11/09/20at 20:52; Start 11/07/20 at 09:00 Morphine Sulfate (Morphine Sulfate) 4 mg PRN Q2HR PRN IV SEVERE PAIN; Start 11/07/20 at 08:15 Aspirin (Anderson Aspirin) 325 mg DAILYWBKFT PO Last administered on 11/09/20at 08:22; Start 11/07/20 at 09:00 Phenylephrine HCl (Blaine-Synephrine Inj) 10 mg STK-MED ONCE .ROUTE ; Start 11/10/20 at 08:13; Stop 11/10/20 at 08:13; Status DC Nicardipine HCl (Cardene) 25 mg STK-MED ONCE IV ; Start 11/10/20 at 08:13; Stop 11/10/20 at 08:13; Status DC Nicardipine HCl (Cardene) 25 mg STK-MED ONCE IV ; Start 11/10/20 at 08:13; Stop 11/10/20 at 08:14; Status DC Heparin Sodium (Porcine) (Heparin Sodium) 10,000 unit STK-MED ONCE .ROUTE ; Start 11/10/20 at 08:13; Stop 11/10/20 at 08:14; Status DC Fentanyl Citrate (Fentanyl 2ml Vial) 25 mcg PRN Q5MIN PRN IVP MILD PAIN 1-3; Start 11/10/20 at 08:15; Stop 11/11/20 at 08:14 Fentanyl Citrate (Fentanyl 2ml Vial) 50 mcg PRN Q5MIN PRN IVP MODERATE PAIN 4- 6; Start 11/10/20 at 08:15; Stop 11/11/20 at 08:14 Morphine Sulfate (Morphine Sulfate) 1 mg PRN Q10MIN PRN IVP SEVERE PAIN 7-10; Start 11/10/20 at 08:15; Stop 11/11/20 at 08:14 Ringer's Solution 1,000 ml @ 30 mls/hr Q24H IV ; Start 11/10/20 at 08:15; Stop 11/10/20 at 20:14 Hydromorphone HCl (Dilaudid) 0.5 mg PRN Q10MIN PRN IVP SEVERE PAIN 7-10, 2nd CHOICE; Start 11/10/20 at 08:15; Stop 11/11/20 at 08:14 Prochlorperazine Edisylate (Compazine) 5 mg PACU PRN PRN IVP NAUSEA, MRX1; Start 11/10/20 at 08:15; Stop 11/11/20 at 08:14 Glycopyrrolate (Robinul) 1 mg STK-MED ONCE .ROUTE ; Start 11/10/20 at 08:15; Stop 11/10/20 at 08:16; Status DC Midazolam HCl (Versed) 2 mg STK-MED ONCE .ROUTE ; Start 11/10/20 at 07:16; Stop 11/10/20 at 09:16; Status DC Lidocaine HCl (Xylocaine-Mpf 1% 2ml Vial) 2 ml STK-MED ONCE .ROUTE ; Start 11/10/20 at 07:16; Stop 11/10/20 at 09:16; Status DC Heparin Sodium (Porcine) 5000 unit/Sodium Chloride 505 ml @ 505 mls/hr 1X ONCE IRR Last administered on 11/10/20at 10:17; Start 11/10/20 at 10:00; Stop 11/10/20 at 10:59 Ropivacaine (Naropin 0.5%) 20 ml STK-MED ONCE .ROUTE ; Start 11/10/20 at 07:26; Stop 11/10/20 at 09:26; Status DC Cellulose (Surgicel Fibrillar 1x2) 1 each STK-MED ONCE .ROUTE ; Start 11/10/20 at 09:28; Stop 11/10/20 at 09:29; Status DC Lidocaine HCl (Xylocaine 1% Pf 30ml Vial) 30 ml STK-MED ONCE .ROUTE Last administered on 11/10/20at 10:17; Start 11/10/20 at 09:28; Stop 11/10/20 at 09:29; Status DC Cefazolin Sodium/ Dextrose 50 ml @ 100 mls/hr 1X ONCE IV Last administered on 11/10/20at 09:58; Start 11/10/20 at 09:45; Stop 11/10/20 at 10:14; Status DC Labetalol HCl (Normodyne Iv Push) 10 mg PRN Q2HR PRN IVP SBP > 160, 1st CHOICE; Start 11/10/20 at 10:00 Hydralazine HCl (Apresoline Inj) 10 mg PRN Q2HRS PRN IVP SBP > 160, 2nd CHOICE; Start 11/10/20 at 10:00 Sodium Chloride (Normal Saline Flush) 3 ml QSHIFT PRN IV AFTER MEDS AND BLOOD DRAWS; Start 11/10/20 at 10:00 Sodium Chloride 1,000 ml @ 100 mls/hr Q10H IV ; Start 11/10/20 at 10:00 Morphine Sulfate (Morphine Sulfate) 2 mg PRN Q1HR PRN IV PAIN-SEE COMMENTS; Start 11/10/20 at 10:00 Acetaminophen/ Hydrocodone Bitart (Lortab 5/325) 1 tab PRN Q4HRS PRN PO MILD PAIN 1-3; Start 11/10/20 at 10:00 Acetaminophen/ Hydrocodone Bitart (Lortab 5/325) 2 tab PRN Q4HRS PRN PO MODERATE PAIN, SEVERE PAIN; Start 11/10/20 at 10:00 Ondansetron HCl (Zofran) 4 mg PRN Q6HRS PRN IVP NAUESA, 1ST CHOICE; Start 11/10/20 at 10:00 Prochlorperazine Edisylate (Compazine) 5 mg PRN Q6HRS PRN IV N/V, 2nd Choice, MR X1; Start 11/10/20 at 10:00 Fentanyl Citrate (Fentanyl 2ml Vial) 100 mcg STK-MED ONCE .ROUTE ; Start 11/10/20 at 10:05; Stop 11/10/20 at 10:05; Status DC Active Scripts Active Reported Rosuvastatin Calcium 40 Mg Tablet 1 Tab PO DAILY Hydrocodone-Acetamin 7.5-325 (Hydrocodone/Acetaminophen) 1 Each Tablet 1 Tab PO TID PRN Temazepam 30 Mg Capsule 1 Cap PO PRN QHS PRN Flomax (Tamsulosin Hcl) 0.4 Mg Cap.er.24h 0.04 Mg DAILY Metoprolol Succinate ( Xl ) (Metoprolol Succinate) 25 Mg Tab.er.24h 50 Mg DAILY Amlodipine Besylate 10 Mg Tablet 1 Tab PO DAILY MDD 10 Vitamin D (Cholecalciferol (Vitamin D3)) 5,000 Unit Tablet 5,000 Unit PO DAILY Anderson Chewable (Aspirin) 81 Mg Tab.chew 81 Mg PO DAILY Vitamin B-1 (Thiamine Mononitrate) 100 Mg Tablet 100 Mg PO BID Omeprazole 40 Mg Capsule.dr 40 Mg PO DAILY Vitals/I & O Vital Sign - Last 24 Hours 11/09/20 11/09/20 11/09/20 11/09/20 11:00 15:00 19:39 19:54 Temp 98.1 97.9 98.4 98.1 97.9 98.4 Pulse 56 67 75 Resp 16 18 16 B/P (MAP) 115/36 (62) 138/31 (66) 124/53 (76) Pulse Ox 97 96 96 O2 Delivery Room Air Room Air Room Air Room Air 11/09/20 11/09/20 11/09/20 11/10/20 20:54 21:24 22:47 07:00 Temp 98.1 97.6 98.1 97.6 Pulse 66 57 Resp 18 18 18 20 B/P (MAP) 136/38 (70) 116/47 (70) Pulse Ox 96 95 O2 Delivery Room Air Room Air Room Air 11/10/20 11/10/20 08:00 09:54 Temp 97.8 97.8 Pulse 68 Resp 18 B/P (MAP) 142/60 Pulse Ox 96 O2 Delivery Room Air Room Air Intake and Output 11/09/20 11/09/20 11/10/20 15:00 23:00 07:00 Intake Total 360 ml 280 ml 0 ml Output Total 300 ml 300 ml 175 ml Balance 60 ml -20 ml -175 ml Images Brain MRI without contrast, 11/07. HISTORY: Transient ischemic attack. TECHNIQUE: Multiplanar, multisequence magnetic resonance imaging of the brain was performed without contrast. COMPARISON: CT angiogram obtained on the same date. FINDINGS: There is no restricted diffusion to suggest acute or subacute infarction. There is no susceptibility effect to suggest hemorrhage. There is no mass effect or midline shift. There is no hydrocephalus. There is cerebral volume loss. There are few small scattered foci of signal change within the cerebral white matter, likely due to chronic small vessel disease. The orbits are unremarkable. The paranasal sinuses and mastoid air cells are unremarkable. There are normal flow voids within the cerebral vessels. There is no calvarial lesion. There is signal abnormality within the central canal at C2- C3 on sagittal T1-weighted images which is likely due to imaging artifact. There is no correlate for this finding on coronal T2-weighted images. IMPRESSION: 1. No acute intracranial finding. 2. Scattered foci of signal change within the cerebral white matter, likely due to chronic small vessel disease in a patient of this age. 3. Cerebral volume loss. Echocardiogram: LEFT VENTRICLE The left ventricle is normal size. There is mild concentric left ventricular hypertrophy. The left ventricular systolic function is normal. Estimated ejection fraction 60-65%. There is normal LV segmental wall motion. Transmitral Doppler flow pattern is Grade I-abnormal relaxation pattern. RIGHT VENTRICLE The right ventricle is normal size. There is normal right ventricular wall thickness. The right ventricular systolic function is normal. ATRIA The left atrium size is normal. The right atrium size is normal. The interatrial septum is intact with no evidence for an atrial septal defect or patent foramen ovale as noted on 2-D or Doppler imaging. AORTIC VALVE The aortic valve is normal in structure and function. Doppler and Color Flow revealed no significant aortic regurgitation. There is no significant aortic valvular stenosis. MITRAL VALVE The mitral valve is normal in structure and function. There is no evidence of mitral valve prolapse. There is no mitral valve stenosis. Doppler and Color Flow revealed no mitral valve regurgitation noted. TRICUSPID VALVE The tricuspid valve is normal in structure and function. Doppler and Color Flow revealed trace to mild tricuspid regurgitation. Estimated PAP 32 mmHg. There is no tricuspid valve stenosis. PULMONIC VALVE The pulmonary valve is normal in structure and function. Doppler and Color Flow revealed mild pulmonic valvular regurgitation. GREAT VESSELS The aortic root is normal in size. The ascending aorta is normal in size. The IVC is normal in size and collapses >50% with inspiration. PERICARDIAL EFFUSION There is no evidence of significant pericardial effusion. Critical Notification Critical Value: No <Conclusion> The left ventricular systolic function is normal. Estimated ejection fraction 60-65%. There is normal LV segmental wall motion. Transmitral Doppler flow pattern is Grade I-abnormal relaxation pattern. Trace to mild tricuspid regurgitation. Estimated PAP 32 mmHg. There is no evidence of significant pericardial effusion. Bubble study negative for interatrial shunt. Electronically Approved : 11/08/2020 16:12:55 Justicifation of Admission Dx: Justifications for Admission: Justification of Admission Dx: N/A JENNIFER ESCUDERO MD November 10, 2020 10:57
[2020-11-10] MEDS ORDERED: PROTAMINE 50 MG/5 ML VIAL. IV ONE (11:44)
--- NOTE | 2020-11-10 11:55 | PDOC ---
BRIEF OPERATIVE NOTE Date: November 10, 2020 Pre-Op Diagnosis Symptomatic right carotid stenosis HTN Amaurosis Fujax Post-Op Diagnosis same Procedure Performed Right carotid endarterectomy Surgeon Maddi Daugherty Anesthesia Type: MAC, Regional Blood Loss 25ml Specimens Obtained Plaque discarded Findings Critical right internal carotid stenosis with heterogeneous plaque Complications none LINO MITCHELL MD November 10, 2020 11:54
[2020-11-10] MEDS: fentaNYL PF VIAL 100 MCG/2 ML VIAL IVP PRN ×2 (12:09→12:40)
--- NOTE | 2020-11-10 12:09 | PDOC ---
[facility] PROGRESS NOTE Date of Service DOS: DATE: 11/10/20 TIME: 12:07 Chief Complaint Chief Complaint TIA, dizzyness and weakness, amaurosis fugax. right carotid stenosis, vascular to do endarterectomy on tuesday L4-L5 stensoss CHF, CV consulted weakness, and hip pain, consult physiatry, ongoing back pain and leg weakess admit, mult problems History of Present Illness History of Present Illness 11/10/2020 No acute events overnight. Patient taken to the OR today for right carotid endarterectomy. Patient's chart, labs, images were reviewed and discussed with RN He has critical right internal carotid stenosis and plan for right carotid endarterectomy tomorrow. still weak, Vitals/I&O Vitals/I&O: Vital Signs Date Time Temp Pulse Resp B/P (MAP) Pulse Ox O2 Delivery O2 Flow Rate FiO2 11/10/20 09:54 97.8 68 18 142/60 96 Room Air 97.8 I & O 11/09/20 11/09/20 11/10/20 15:00 23:00 07:00 Intake Total 360 ml 280 ml 0 ml Output Total 300 ml 300 ml 175 ml Balance 60 ml -20 ml -175 ml Physical Exam General: Alert, No acute distress Heart: Regular rate Abdomen: Soft, No tenderness Extremities: No edema Skin: No breakdown, No significant lesion Labs Labs: Laboratory Tests Test 11/10/20 03:20 White Blood Count 5.4 x10^3/uL (4.0-11.0) Red Blood Count 4.16 x10^6/uL (4.30-5.70) Hemoglobin 12.2 g/dL (13.0-17.5) Hematocrit 36.4 % (39.0-53.0) Mean Corpuscular Volume 87 fL (79-100) Mean Corpuscular Hemoglobin 29 pg (25-35) Mean Corpuscular Hemoglobin Concent 33 g/dL (31-37) Red Cell Distribution Width 14.1 % (11.5-14.5) Platelet Count 148 x10^3/uL (140-400) Sodium Level 144 mmol/L (136-145) Potassium Level 4.0 mmol/L (3.5-5.1) Chloride Level 108 mmol/L (98-107) Carbon Dioxide Level 28 mmol/L (21-32) Anion Gap 8 (6-14) Blood Urea Nitrogen 18 mg/dL (8-26) Creatinine 1.0 mg/dL (0.7-1.3) Estimated GFR (Cockcroft-Gault) 72.8 Glucose Level 104 mg/dL (70-99) Calcium Level 8.0 mg/dL (8.5-10.1) Assessment and Plan Assessmemt and Plan Problems Medical Problems: (1) Chest pain Status: Acute (2) Stenosis of right carotid artery greater than 50% Status: Acute (3) Tinnitus Status: Acute Comment Review of Relevant I have reviewed the following items marlene (where applicable) has been applied. Medications: Current Medications Medications (Trade) Dose Ordered Sig/Zan Route PRN Reason Start Time Stop Time Status Last Admin Dose Admin Heparin Sodium (Porcine) 5000 unit/Sodium Chloride 505 ml @ 505 mls/hr 1X ONCE IRR 11/10/20 10:00 11/10/20 10:59 DC 11/10/20 10:17 Cellulose (Surgicel Fibrillar 1x2) 1 each STK-MED ONCE .ROUTE 11/10/20 09:28 11/10/20 09:29 DC 11/10/20 11:26 Lidocaine HCl (Xylocaine 1% Pf 30ml Vial) 30 ml STK-MED ONCE .ROUTE 11/10/20 09:28 11/10/20 09:29 DC 11/10/20 10:17 Cefazolin Sodium/ Dextrose 50 ml @ 100 mls/hr 1X ONCE IV 11/10/20 09:45 11/10/20 10:14 DC 11/10/20 09:58 Justifications for Admission Other Justification JENNIFER SMITH MD November 10, 2020 12:09
--- NOTE | 2020-11-10 12:34 | NUR ---
SS following up with discharge planning. SS reviewed pt chart and discussed with pt RN. Pt is from home and is currently on room air. COVID19 negative. Pt had Carotid surgery today. PT/OT recommended home independent. Discharge plan is currently to home when medically stable. SS will continue to follow for discharge planning.
[2020-11-10] MEDS: THIAMINE 100 MG TABLET. PO SCH ×2 (14:17→20:11)
[2020-11-10] MEDS: TAMSULOSIN 0.4 MG CAP.ER.24H. PO SCH (14:17)
[2020-11-10] MEDS: ASPIRIN 325 MG TABLET PO SCH (14:17)
[2020-11-10] MEDS: HYDROcodone/APAP 7.5/325MG 1 TAB TABLET PO PRN (14:21)
[2020-11-10 14:48] VITALS: BP 157/67
--- NOTE | 2020-11-10 15:45 | OP ---
DATE OF SURGERY: 11/10/2020 PREOPERATIVE DIAGNOSES: 1. Symptomatic high-grade right internal carotid artery stenosis. 2. Right eye amaurosis fugax. 3. Hypertension. 4. Coronary artery disease. 5. Hyperlipidemia. POSTOPERATIVE DIAGNOSES 1. Symptomatic high-grade right internal carotid artery stenosis. 2. Right eye amaurosis fugax. 3. Hypertension. 4. Coronary artery disease. 5. Hyperlipidemia. PROCEDURE: Right carotid endarterectomy using eversion technique and shortening patch angioplasty. SURGEON: Karthik Linda MD [employer] SUPERVISOR: Lexy Daugherty APRN. ANESTHESIA: Cervical block. INDICATION: The patient is a 75-year-old male with hypertension, hypercholesterolemia, and history of coronary artery disease who presents with transient right eye vision loss. This has resolved. He had a CT angiogram demonstrating critical right internal carotid artery narrowing. He presents for elective right carotid endarterectomy. FINDINGS: There was calcified plaquing at the carotid bifurcation resulting in high-grade right internal carotid artery stenosis. There was significant friability of the more distal plaque. There is also quite a bit of inflammation around the posterior wall of the internal carotid artery associated with this friable plaque. Endarterectomy was performed with shortening patch angioplasty. He remained neurologically intact throughout. DESCRIPTION OF PROCEDURE: The patient was taken to the operating room and placed on the operating table after a right cervical block was placed. His right neck and anterior chest were prepped and draped in normal sterile fashion. Ioban occlusive dressing was placed over the surgical field. A longitudinal incision was made along the anterior border of sternocleidomastoid. This incision carried down through the subcutaneous tissue and platysma. 1% lidocaine was used to supplement the cervical block. The sternocleidomastoid was retracted laterally. Small crossing vessels were divided between Hemoclips. The common carotid artery was carefully mobilized and encircled proximally with umbilical tape. He was given 7000 units of IV heparin. Dissection was continued distally. The facial vein was divided between 2-0 silk ties. External carotid artery was carefully mobilized free from the surrounding tissue and encircled with a Quinones tie vessel loop. He is awake and alert with good left hand strength. Common carotid artery was clamped proximally and the external carotid was controlled by tying the vessel loop. He remained awake and alert with good right hand strength. Internal carotid artery was carefully mobilized free from the surrounding tissue and clamped distally. Internal carotid artery was divided from its origin to the carotid bifurcation. A medial arteriotomy was extended up the internal carotid artery and an anterolateral arteriotomy was extended down to the common carotid artery. Endarterectomy was performed on the internal carotid artery to a smooth distal transition point. It was noted there was significant friability of the more distal plaque. There was also significant inflammation and adherence of the posterior plaque to the more distal internal carotid artery. Care was taken to remove all residual debris. Endarterectomy was then performed at the carotid bifurcation extending endarterectomy proximal. The common carotid plaque extended several centimeters proximal to the bifurcation. The arteriotomy was extended proximally to help facilitate removal of this more proximal plaque. The plaque was removed and all debris was carefully removed. Internal carotid artery was then reanastomosed to the carotid bifurcation using running 6-0 Prolene suture. A second 6-0 Prolene was also used to close the more proximal common carotid artery. Prior to completion of the arterial closure, the arteries were backbled and forward flushed. The arterial closure completed and flow was reconstituted initially to the external and finally into the internal carotid artery. There was good hemostasis. The patient was given 20 mg of protamine to reverse the effects of heparin. The incision was copiously irrigated. Fibrillar Surgicel was placed in the base of the wound for added hemostasis. A 7 mm flat Matthew-Murry drain was placed exiting the low right neck. Platysma was reapproximated with running 2-0 Vicryl suture. Skin was reapproximated with a running subcuticular 4-0 Vicryl. Mastisol and Steri-Strips were applied and a sterile dressing placed into the wound. ESTIMATED BLOOD LOSS: 25 mL SPECIMENS: None. Please note that Lexy Daugherty assisted with exposure, endarterectomy and closure. LINDA/NASEEMI/MOH DR: Izabella TID: [id number] CC: Deandre Yanes MD
[2020-11-10 19:00] VITALS: BP 129/60
[2020-11-10] MEDS: TEMAZEPAM 15 MG CAPSULE PO PRN (20:11)
[2020-11-10 22:26] VITALS: BP 112/54
[2020-11-10] MEDS: HYDROcodone/APAP 5/325MG 1 TAB TABLET PO PRN (23:43)
[2020-11-11] MEDS: HYDROcodone/APAP 5/325MG 1 TAB TABLET PO PRN ×2 (01:49→01:59)
[2020-11-11] MEDS ORDERED: PANTOPRAZOLE 40 MG TABLET.DR. PO ONE (02:30)
[2020-11-11 02:40] VITALS: BP 150/51
[2020-11-11 07:48] VITALS: BP 150/64
[2020-11-11] MEDS: METOPROLOL SUCC 24HR ER 25 MG TAB.ER.24H. PO SCH (07:56)
[2020-11-11] MEDS: ASPIRIN 325 MG TABLET PO SCH (07:57)
[2020-11-11] MEDS: HYDROcodone/APAP 7.5/325MG 1 TAB TABLET PO PRN (07:57)
[2020-11-11] MEDS: THIAMINE 100 MG TABLET. PO SCH (07:57)
[2020-11-11] MEDS: TAMSULOSIN 0.4 MG CAP.ER.24H. PO SCH (07:57)
[2020-11-11] MEDS ORDERED: HYDR-2765 PO (08:37)
--- NOTE | 2020-11-11 08:41 | PDOC ---
Provider Note Date of Service: DATE: 11/11/20 TIME: 08:40 Provider Note Provider Note Vascular S: Patient complains of mild to moderate incisional pain. O: Awake and alert Vital signs stable, afebrile Right neck incision is dry and intact, no hematoma or swelling. Trachea is midline. Pm Head Cook are equal, moving all extremities equally. Speech is clear, no facial asymmetry A/P: Postop day 1 right carotid endarterectomy Patient progressing as expected Okay to discharge to home when medically stable. Patient instructed on postoperative care. Patient to follow-up in 2 to 3 weeks as scheduled. Justicifation of Admission Dx: Justifications for Admission: Justification of Admission Dx: N/A EMILIE LEES APRN November 11, 2020 08:41
--- NOTE | 2020-11-11 09:00 | PDOC ---
PROGRESS NOTES Date of Service DATE: 11/11/20 TIME: 08:57 Subjective Subjective No new complaints. Objective Objective Vital Signs Date Time Temp Pulse Resp B/P (MAP) Pulse Ox O2 Delivery O2 Flow Rate FiO2 11/11/20 08:00 Room Air 11/11/20 07:57 18 98 11/11/20 07:56 68 150/64 11/11/20 07:48 98.2 98.2 Intake and Output 11/11/20 07:00 Intake Total 990 ml Output Total 65 ml Balance 925 ml Intake Oral 490 ml IV Total 500 ml Drainage Total 40 ml Estimated Blood Loss 25 ml Physical Exam Physical Exam He is alert,up with his canes at bedside and is independent with his mobility. Assessment Assessment Problems Medical Problems: (1) Chest pain Status: Acute (2) Stenosis of right carotid artery greater than 50% Status: Acute (3) Tinnitus Status: Acute Plan Plan of Care I have explained to him about DELL at his request. Home when medically stable and he should keep follow up appointment with orthopedic surgeon for DELL. Comment Review of Relevant I have reviewed the following items marlene (where applicable) has been applied. Labs Laboratory Tests Test 11/09/20 09:17 11/10/20 03:20 SARS-CoV-2 RNA (MEGGAN) Negative (Negative) SARS-CoV-2 Antigen (Rapid) Negative (NEGATIVE) White Blood Count 5.4 x10^3/uL (4.0-11.0) Red Blood Count 4.16 x10^6/uL (4.30-5.70) Hemoglobin 12.2 g/dL (13.0-17.5) Hematocrit 36.4 % (39.0-53.0) Mean Corpuscular Volume 87 fL (79-100) Mean Corpuscular Hemoglobin 29 pg (25-35) Mean Corpuscular Hemoglobin Concent 33 g/dL (31-37) Red Cell Distribution Width 14.1 % (11.5-14.5) Platelet Count 148 x10^3/uL (140-400) Sodium Level 144 mmol/L (136-145) Potassium Level 4.0 mmol/L (3.5-5.1) Chloride Level 108 mmol/L (98-107) Carbon Dioxide Level 28 mmol/L (21-32) Anion Gap 8 (6-14) Blood Urea Nitrogen 18 mg/dL (8-26) Creatinine 1.0 mg/dL (0.7-1.3) Estimated GFR (Cockcroft-Gault) 72.8 Glucose Level 104 mg/dL (70-99) Calcium Level 8.0 mg/dL (8.5-10.1) Medications Current Medications Iohexol (Omnipaque 300 Mg/ml) 75 ml 1X ONCE IV Last administered on 11/07/20at 04:10; Start 11/07/20 at 03:45; Stop 11/07/20 at 03:46; Status DC Info (CONTRAST GIVEN -- Rx MONITORING) 1 each PRN DAILY PRN MC SEE COMMENTS; Start 11/07/20 at 03:45; Stop 11/09/20 at 03:44; Status DC Acetaminophen/ Hydrocodone Bitart (Lortab 7.5/325) 1 tab PRN TID PRN PO MILD TO MODERATE PAIN Last administered on 11/11/20at 07:57; Start 11/07/20 at 08:15 Metoprolol Succinate (Toprol Xl) 50 mg DAILY PO Last administered on 11/11/20at 07:56; Start 11/07/20 at 09:00 Sucralfate (Carafate) 1 gm QID PO ; Start 11/07/20 at 09:00; Stop 11/07/20 at 08:24; Status DC Tamsulosin HCl (Flomax) 0.4 mg DAILY PO Last administered on 11/11/20at 07:57; Start 11/07/20 at 09:00 Temazepam (Restoril) 30 mg PRN QHS PRN PO sleep aid Last administered on 11/10/20at 20:11; Start 11/07/20 at 08:15 Thiamine Mononitrate (Vitamin B-1) 100 mg BID PO Last administered on 11/11/20at 07:57; Start 11/07/20 at 09:00 Morphine Sulfate (Morphine Sulfate) 4 mg PRN Q2HR PRN IV SEVERE PAIN; Start 11/07/20 at 08:15 Aspirin (Anderson Aspirin) 325 mg DAILYWBKFT PO Last administered on 11/11/20at 07:57; Start 11/07/20 at 09:00 Phenylephrine HCl (Blaine-Synephrine Inj) 10 mg STK-MED ONCE .ROUTE ; Start 11/10/20 at 08:13; Stop 11/10/20 at 08:13; Status DC Nicardipine HCl (Cardene) 25 mg STK-MED ONCE IV ; Start 11/10/20 at 08:13; Stop 11/10/20 at 08:13; Status DC Nicardipine HCl (Cardene) 25 mg STK-MED ONCE IV ; Start 11/10/20 at 08:13; Stop 11/10/20 at 08:14; Status DC Heparin Sodium (Porcine) (Heparin Sodium) 10,000 unit STK-MED ONCE .ROUTE ; Start 11/10/20 at 08:13; Stop 11/10/20 at 08:14; Status DC Fentanyl Citrate (Fentanyl 2ml Vial) 25 mcg PRN Q5MIN PRN IVP MILD PAIN 1-3; Start 11/10/20 at 08:15; Stop 11/11/20 at 08:14; Status DC Fentanyl Citrate (Fentanyl 2ml Vial) 50 mcg PRN Q5MIN PRN IVP MODERATE PAIN 4-6 Last administered on 11/10/20at 12:40; Start 11/10/20 at 08:15; Stop 11/11/20 at 08:14; Status DC Morphine Sulfate (Morphine Sulfate) 1 mg PRN Q10MIN PRN IVP SEVERE PAIN 7-10; Start 11/10/20 at 08:15; Stop 11/11/20 at 08:14; Status DC Ringer's Solution 1,000 ml @ 30 mls/hr Q24H IV ; Start 11/10/20 at 08:15; Stop 11/10/20 at 20:14; Status DC Hydromorphone HCl (Dilaudid) 0.5 mg PRN Q10MIN PRN IVP SEVERE PAIN 7-10, 2nd CHOICE; Start 11/10/20 at 08:15; Stop 11/11/20 at 08:14; Status DC Prochlorperazine Edisylate (Compazine) 5 mg PACU PRN PRN IVP NAUSEA, MRX1; Start 11/10/20 at 08:15; Stop 11/11/20 at 08:14; Status DC Glycopyrrolate (Robinul) 1 mg STK-MED ONCE .ROUTE ; Start 11/10/20 at 08:15; Stop 11/10/20 at 08:16; Status DC Midazolam HCl (Versed) 2 mg STK-MED ONCE .ROUTE ; Start 11/10/20 at 07:16; Stop 11/10/20 at 09:16; Status DC Lidocaine HCl (Xylocaine-Mpf 1% 2ml Vial) 2 ml STK-MED ONCE .ROUTE ; Start 11/10/20 at 07:16; Stop 11/10/20 at 09:16; Status DC Heparin Sodium (Porcine) 5000 unit/Sodium Chloride 505 ml @ 505 mls/hr 1X ONCE IRR Last administered on 11/10/20at 10:17; Start 11/10/20 at 10:00; Stop 11/10/20 at 10:59; Status DC Ropivacaine (Naropin 0.5%) 20 ml STK-MED ONCE .ROUTE ; Start 11/10/20 at 07:26; Stop 11/10/20 at 09:26; Status DC Cellulose (Surgicel Fibrillar 1x2) 1 each STK-MED ONCE .ROUTE Last administered on 11/10/20at 11:26; Start 11/10/20 at 09:28; Stop 11/10/20 at 09:29; Status DC Lidocaine HCl (Xylocaine 1% Pf 30ml Vial) 30 ml STK-MED ONCE .ROUTE Last administered on 11/10/20at 10:17; Start 11/10/20 at 09:28; Stop 11/10/20 at 09:29; Status DC Cefazolin Sodium/ Dextrose 50 ml @ 100 mls/hr 1X ONCE IV Last administered on 11/10/20at 09:58; Start 11/10/20 at 09:45; Stop 11/10/20 at 10:14; Status DC Labetalol HCl (Normodyne Iv Push) 10 mg PRN Q2HR PRN IVP SBP > 160, 1st CHOICE; Start 11/10/20 at 10:00 Hydralazine HCl (Apresoline Inj) 10 mg PRN Q2HRS PRN IVP SBP > 160, 2nd CHOICE; Start 11/10/20 at 10:00 Sodium Chloride (Normal Saline Flush) 3 ml QSHIFT PRN IV AFTER MEDS AND BLOOD DRAWS; Start 11/10/20 at 10:00 Sodium Chloride 1,000 ml @ 100 mls/hr Q10H IV ; Start 11/10/20 at 10:00; Stop 11/10/20 at 18:13; Status DC Morphine Sulfate (Morphine Sulfate) 2 mg PRN Q1HR PRN IV PAIN-SEE COMMENTS; Start 11/10/20 at 10:00 Acetaminophen/ Hydrocodone Bitart (Lortab 5/325) 1 tab PRN Q4HRS PRN PO MILD PAIN 1-3 Last administered on 11/11/20at 01:59; Start 11/10/20 at 10:00 Acetaminophen/ Hydrocodone Bitart (Lortab 5/325) 2 tab PRN Q4HRS PRN PO MODERATE PAIN, SEVERE PAIN; Start 11/10/20 at 10:00 Ondansetron HCl (Zofran) 4 mg PRN Q6HRS PRN IVP NAUESA, 1ST CHOICE Last administered on 11/11/20at 07:56; Start 11/10/20 at 10:00 Prochlorperazine Edisylate (Compazine) 5 mg PRN Q6HRS PRN IV N/V, 2nd Choice, MR X1; Start 11/10/20 at 10:00 Fentanyl Citrate (Fentanyl 2ml Vial) 100 mcg STK-MED ONCE .ROUTE ; Start 11/10/20 at 10:05; Stop 11/10/20 at 10:05; Status DC Midazolam HCl (Versed) 2 mg STK-MED ONCE .ROUTE ; Start 11/10/20 at 10:59; Stop 11/10/20 at 10:59; Status DC Protamine Sulfate (Protamine) 50 mg STK-MED ONCE IV ; Start 11/10/20 at 11:44; Stop 11/10/20 at 11:44; Status DC Fentanyl Citrate (Fentanyl 2ml Vial) 100 mcg STK-MED ONCE .ROUTE ; Start 11/10/20 at 12:06; Stop 11/10/20 at 12:06; Status DC Pantoprazole Sodium (Protonix) 40 mg 1X ONCE PO Last administered on 11/11/20at 02:33; Start 11/11/20 at 02:30; Stop 11/11/20 at 02:31; Status DC Active Scripts Active Hydrocodone-Apap 7.5-325 (Hydrocodone Bit/Acetaminophen) 1 Tab Tablet 1 Tab PO PRN TID PRN 7 Days Reported Rosuvastatin Calcium 40 Mg Tablet 1 Tab PO DAILY Hydrocodone-Acetamin 7.5-325 (Hydrocodone/Acetaminophen) 1 Each Tablet 1 Tab PO TID PRN Temazepam 30 Mg Capsule 1 Cap PO PRN QHS PRN Flomax (Tamsulosin Hcl) 0.4 Mg Cap.er.24h 0.04 Mg DAILY Metoprolol Succinate ( Xl ) (Metoprolol Succinate) 25 Mg Tab.er.24h 50 Mg DAILY Amlodipine Besylate 10 Mg Tablet 1 Tab PO DAILY MDD 10 Vitamin D (Cholecalciferol (Vitamin D3)) 5,000 Unit Tablet 5,000 Unit PO DAILY Anderson Chewable (Aspirin) 81 Mg Tab.chew 81 Mg PO DAILY Vitamin B-1 (Thiamine Mononitrate) 100 Mg Tablet 100 Mg PO BID Omeprazole 40 Mg Capsule.dr 40 Mg PO DAILY Vitals/I & O Vital Sign - Last 24 Hours 11/10/20 11/10/20 11/10/20 11/10/20 09:00 09:54 12:09 12:15 Temp 97.8 97.8 Pulse 72 68 66 Resp 18 18 18 B/P (MAP) 157/67 142/60 114/55 Pulse Ox 96 95 95 O2 Delivery Room Air Room Air Room Air 11/10/20 11/10/20 11/10/20 11/10/20 12:28 12:40 12:43 12:59 Pulse 67 63 71 Resp 18 18 18 B/P (MAP) 156/60 149/37 167/63 Pulse Ox 95 95 95 97 O2 Delivery Room Air Room Air Room Air Room Air 11/10/20 11/10/20 11/10/20 11/10/20 14:21 14:48 14:50 19:00 Temp 98.2 98.6 98.2 98.6 Pulse 72 67 Resp 20 18 20 18 B/P (MAP) 157/67 (97) 129/60 (83) Pulse Ox 97 96 96 O2 Delivery Room Air Room Air Room Air 11/10/20 11/10/20 11/10/20 11/11/20 19:23 22:26 23:43 00:13 Temp 98.0 98.0 Pulse 62 Resp 16 18 20 B/P (MAP) 112/54 (73) Pulse Ox 94 O2 Delivery Room Air Room Air Room Air 11/11/20 11/11/20 11/11/20 11/11/20 01:49 01:59 02:29 02:40 Temp 98.5 98.5 Pulse 54 Resp 20 18 18 16 B/P (MAP) 150/51 (84) Pulse Ox 93 O2 Delivery Room Air Room Air Room Air 11/11/20 11/11/20 11/11/20 11/11/20 07:48 07:56 07:57 08:00 Temp 98.2 98.2 Pulse 68 68 Resp 16 18 B/P (MAP) 150/64 (92) 150/64 Pulse Ox 68 98 O2 Delivery Room Air Room Air Room Air Intake and Output 11/10/20 11/10/20 11/11/20 15:00 23:00 07:00 Intake Total 740 ml 250 ml 0 ml Output Total 25 ml 30 ml 10 ml Balance 715 ml 220 ml -10 ml Justifications for Admission Other Justification MONIAC HILLIARD MD November 11, 2020 09:00
--- NOTE | 2020-11-11 09:43 | PDOC ---
PROGRESS NOTES Date of Service DATE: 11/11/20 TIME: 09:41 Assessment Problems Medical Problems: (1) Chest pain Status: Acute (2) Stenosis of right carotid artery greater than 50% Status: Acute (3) Tinnitus Status: Acute Status-post right carotid artery endarterectomy on 11/10, doing well High-grade stenosis of the proximal right ICA, estimated at 75-80% stenosis, mild narrowing of the proximal left ICA. He had an episode of altitudinal visual field defect inferiorly, which is somewhat atypical for embolic phenomenon, but still possible Tinnitus following exposure to noise in an MRI scanner Chest pain and left arm pain and numbness, probably cardiac versus GI versus the usual chest pain etiologies. I doubt this was a transient ischemic attack. 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 Subjective No complaints Objective Vital Signs Date Time Temp Pulse Resp B/P (MAP) Pulse Ox O2 Delivery O2 Flow Rate FiO2 11/11/20 08:25 18 98 Room Air 11/11/20 07:56 68 150/64 11/11/20 07:48 98.2 98.2 Intake and Output 11/11/20 07:00 Intake Total 990 ml Output Total 65 ml Balance 925 ml Intake Oral 490 ml IV Total 500 ml Drainage Total 40 ml Estimated Blood Loss 25 ml PHYSICAL EXAM Alert. Oriented to time, place and person. PERRL. EOMI. CN: no focal findings. Muscle tone: normal. Muscle strength: 5/5 DTR: 2+ Plantar reflex: Flexor Gait: not examined in bed. Sensory exam: no abnormal findings. No cerebellar signs elicited. Review of Relevant I have reviewed the following items marlene (where applicable) has been applied. Labs Laboratory Tests Test 11/10/20 03:20 White Blood Count 5.4 x10^3/uL (4.0-11.0) Red Blood Count 4.16 x10^6/uL (4.30-5.70) Hemoglobin 12.2 g/dL (13.0-17.5) Hematocrit 36.4 % (39.0-53.0) Mean Corpuscular Volume 87 fL (79-100) Mean Corpuscular Hemoglobin 29 pg (25-35) Mean Corpuscular Hemoglobin Concent 33 g/dL (31-37) Red Cell Distribution Width 14.1 % (11.5-14.5) Platelet Count 148 x10^3/uL (140-400) Sodium Level 144 mmol/L (136-145) Potassium Level 4.0 mmol/L (3.5-5.1) Chloride Level 108 mmol/L (98-107) Carbon Dioxide Level 28 mmol/L (21-32) Anion Gap 8 (6-14) Blood Urea Nitrogen 18 mg/dL (8-26) Creatinine 1.0 mg/dL (0.7-1.3) Estimated GFR (Cockcroft-Gault) 72.8 Glucose Level 104 mg/dL (70-99) Calcium Level 8.0 mg/dL (8.5-10.1) Medications Current Medications Iohexol (Omnipaque 300 Mg/ml) 75 ml 1X ONCE IV Last administered on 11/07/20at 04:10; Start 11/07/20 at 03:45; Stop 11/07/20 at 03:46; Status DC Info (CONTRAST GIVEN -- Rx MONITORING) 1 each PRN DAILY PRN MC SEE COMMENTS; Start 11/07/20 at 03:45; Stop 11/09/20 at 03:44; Status DC Acetaminophen/ Hydrocodone Bitart (Lortab 7.5/325) 1 tab PRN TID PRN PO MILD TO MODERATE PAIN Last administered on 11/11/20at 07:57; Start 11/07/20 at 08:15 Metoprolol Succinate (Toprol Xl) 50 mg DAILY PO Last administered on 11/11/20at 07:56; Start 11/07/20 at 09:00 Sucralfate (Carafate) 1 gm QID PO ; Start 11/07/20 at 09:00; Stop 11/07/20 at 08:24; Status DC Tamsulosin HCl (Flomax) 0.4 mg DAILY PO Last administered on 11/11/20at 07:57; Start 11/07/20 at 09:00 Temazepam (Restoril) 30 mg PRN QHS PRN PO sleep aid Last administered on 11/10/20at 20:11; Start 11/07/20 at 08:15 Thiamine Mononitrate (Vitamin B-1) 100 mg BID PO Last administered on 11/11/20at 07:57; Start 11/07/20 at 09:00 Morphine Sulfate (Morphine Sulfate) 4 mg PRN Q2HR PRN IV SEVERE PAIN; Start 11/07/20 at 08:15 Aspirin (Anderson Aspirin) 325 mg DAILYWBKFT PO Last administered on 11/11/20at 07:57; Start 11/07/20 at 09:00 Phenylephrine HCl (Blaine-Synephrine Inj) 10 mg STK-MED ONCE .ROUTE ; Start 11/10/20 at 08:13; Stop 11/10/20 at 08:13; Status DC Nicardipine HCl (Cardene) 25 mg STK-MED ONCE IV ; Start 11/10/20 at 08:13; Stop 11/10/20 at 08:13; Status DC Nicardipine HCl (Cardene) 25 mg STK-MED ONCE IV ; Start 11/10/20 at 08:13; Stop 11/10/20 at 08:14; Status DC Heparin Sodium (Porcine) (Heparin Sodium) 10,000 unit STK-MED ONCE .ROUTE ; Start 11/10/20 at 08:13; Stop 11/10/20 at 08:14; Status DC Fentanyl Citrate (Fentanyl 2ml Vial) 25 mcg PRN Q5MIN PRN IVP MILD PAIN 1-3; Start 11/10/20 at 08:15; Stop 11/11/20 at 08:14; Status DC Fentanyl Citrate (Fentanyl 2ml Vial) 50 mcg PRN Q5MIN PRN IVP MODERATE PAIN 4-6 Last administered on 11/10/20at 12:40; Start 11/10/20 at 08:15; Stop 11/11/20 at 08:14; Status DC Morphine Sulfate (Morphine Sulfate) 1 mg PRN Q10MIN PRN IVP SEVERE PAIN 7-10; Start 11/10/20 at 08:15; Stop 11/11/20 at 08:14; Status DC Ringer's Solution 1,000 ml @ 30 mls/hr Q24H IV ; Start 11/10/20 at 08:15; Stop 11/10/20 at 20:14; Status DC Hydromorphone HCl (Dilaudid) 0.5 mg PRN Q10MIN PRN IVP SEVERE PAIN 7-10, 2nd CHOICE; Start 11/10/20 at 08:15; Stop 11/11/20 at 08:14; Status DC Prochlorperazine Edisylate (Compazine) 5 mg PACU PRN PRN IVP NAUSEA, MRX1; Start 11/10/20 at 08:15; Stop 11/11/20 at 08:14; Status DC Glycopyrrolate (Robinul) 1 mg STK-MED ONCE .ROUTE ; Start 11/10/20 at 08:15; Stop 11/10/20 at 08:16; Status DC Midazolam HCl (Versed) 2 mg STK-MED ONCE .ROUTE ; Start 11/10/20 at 07:16; Stop 11/10/20 at 09:16; Status DC Lidocaine HCl (Xylocaine-Mpf 1% 2ml Vial) 2 ml STK-MED ONCE .ROUTE ; Start 11/10/20 at 07:16; Stop 11/10/20 at 09:16; Status DC Heparin Sodium (Porcine) 5000 unit/Sodium Chloride 505 ml @ 505 mls/hr 1X ONCE IRR Last administered on 11/10/20at 10:17; Start 11/10/20 at 10:00; Stop 11/10/20 at 10:59; Status DC Ropivacaine (Naropin 0.5%) 20 ml STK-MED ONCE .ROUTE ; Start 11/10/20 at 07:26; Stop 11/10/20 at 09:26; Status DC Cellulose (Surgicel Fibrillar 1x2) 1 each STK-MED ONCE .ROUTE Last administered on 11/10/20at 11:26; Start 11/10/20 at 09:28; Stop 11/10/20 at 09:29; Status DC Lidocaine HCl (Xylocaine 1% Pf 30ml Vial) 30 ml STK-MED ONCE .ROUTE Last administered on 11/10/20at 10:17; Start 11/10/20 at 09:28; Stop 11/10/20 at 09:29; Status DC Cefazolin Sodium/ Dextrose 50 ml @ 100 mls/hr 1X ONCE IV Last administered on 11/10/20at 09:58; Start 11/10/20 at 09:45; Stop 11/10/20 at 10:14; Status DC Labetalol HCl (Normodyne Iv Push) 10 mg PRN Q2HR PRN IVP SBP > 160, 1st CHOICE; Start 11/10/20 at 10:00 Hydralazine HCl (Apresoline Inj) 10 mg PRN Q2HRS PRN IVP SBP > 160, 2nd CHOICE; Start 11/10/20 at 10:00 Sodium Chloride (Normal Saline Flush) 3 ml QSHIFT PRN IV AFTER MEDS AND BLOOD DRAWS; Start 11/10/20 at 10:00 Sodium Chloride 1,000 ml @ 100 mls/hr Q10H IV ; Start 11/10/20 at 10:00; Stop 11/10/20 at 18:13; Status DC Morphine Sulfate (Morphine Sulfate) 2 mg PRN Q1HR PRN IV PAIN-SEE COMMENTS; Start 11/10/20 at 10:00 Acetaminophen/ Hydrocodone Bitart (Lortab 5/325) 1 tab PRN Q4HRS PRN PO MILD PAIN 1-3 Last administered on 11/11/20at 01:59; Start 11/10/20 at 10:00 Acetaminophen/ Hydrocodone Bitart (Lortab 5/325) 2 tab PRN Q4HRS PRN PO MODERATE PAIN, SEVERE PAIN; Start 11/10/20 at 10:00 Ondansetron HCl (Zofran) 4 mg PRN Q6HRS PRN IVP NAUESA, 1ST CHOICE Last administered on 11/11/20at 07:56; Start 11/10/20 at 10:00 Prochlorperazine Edisylate (Compazine) 5 mg PRN Q6HRS PRN IV N/V, 2nd Choice, MR X1; Start 11/10/20 at 10:00 Fentanyl Citrate (Fentanyl 2ml Vial) 100 mcg STK-MED ONCE .ROUTE ; Start 11/10/20 at 10:05; Stop 11/10/20 at 10:05; Status DC Midazolam HCl (Versed) 2 mg STK-MED ONCE .ROUTE ; Start 11/10/20 at 10:59; Stop 11/10/20 at 10:59; Status DC Protamine Sulfate (Protamine) 50 mg STK-MED ONCE IV ; Start 11/10/20 at 11:44; Stop 11/10/20 at 11:44; Status DC Fentanyl Citrate (Fentanyl 2ml Vial) 100 mcg STK-MED ONCE .ROUTE ; Start 11/10/20 at 12:06; Stop 11/10/20 at 12:06; Status DC Pantoprazole Sodium (Protonix) 40 mg 1X ONCE PO Last administered on 11/11/20at 02:33; Start 11/11/20 at 02:30; Stop 11/11/20 at 02:31; Status DC Active Scripts Active Hydrocodone-Apap 7.5-325 (Hydrocodone Bit/Acetaminophen) 1 Tab Tablet 1 Tab PO PRN TID PRN 7 Days Reported Rosuvastatin Calcium 40 Mg Tablet 1 Tab PO DAILY Hydrocodone-Acetamin 7.5-325 (Hydrocodone/Acetaminophen) 1 Each Tablet 1 Tab PO TID PRN Temazepam 30 Mg Capsule 1 Cap PO PRN QHS PRN Flomax (Tamsulosin Hcl) 0.4 Mg Cap.er.24h 0.04 Mg DAILY Metoprolol Succinate ( Xl ) (Metoprolol Succinate) 25 Mg Tab.er.24h 50 Mg DAILY Amlodipine Besylate 10 Mg Tablet 1 Tab PO DAILY MDD 10 Vitamin D (Cholecalciferol (Vitamin D3)) 5,000 Unit Tablet 5,000 Unit PO DAILY Anderson Chewable (Aspirin) 81 Mg Tab.chew 81 Mg PO DAILY Vitamin B-1 (Thiamine Mononitrate) 100 Mg Tablet 100 Mg PO BID Omeprazole 40 Mg Capsule.dr 40 Mg PO DAILY Vitals/I & O Vital Sign - Last 24 Hours 11/10/20 11/10/20 11/10/20 11/10/20 09:54 12:09 12:15 12:28 Temp 97.8 97.8 Pulse 68 66 67 Resp 18 18 18 18 B/P (MAP) 142/60 114/55 156/60 Pulse Ox 96 95 95 95 O2 Delivery Room Air Room Air Room Air Room Air 11/10/20 11/10/20 11/10/20 11/10/20 12:40 12:43 12:59 14:21 Pulse 63 71 Resp 18 18 20 B/P (MAP) 149/37 167/63 Pulse Ox 95 95 97 97 O2 Delivery Room Air Room Air Room Air Room Air 11/10/20 11/10/20 11/10/20 11/10/20 14:48 14:50 19:00 19:23 Temp 98.2 98.6 98.2 98.6 Pulse 72 67 Resp 18 20 18 B/P (MAP) 157/67 (97) 129/60 (83) Pulse Ox 96 96 O2 Delivery Room Air Room Air Room Air 11/10/20 11/10/20 11/11/20 11/11/20 22:26 23:43 00:13 01:49 Temp 98.0 98.0 Pulse 62 Resp 16 18 20 20 B/P (MAP) 112/54 (73) Pulse Ox 94 O2 Delivery Room Air Room Air Room Air 11/11/20 11/11/20 11/11/20 11/11/20 01:59 02:29 02:40 07:48 Temp 98.5 98.2 98.5 98.2 Pulse 54 68 Resp 18 18 16 16 B/P (MAP) 150/51 (84) 150/64 (92) Pulse Ox 93 68 O2 Delivery Room Air Room Air Room Air 11/11/20 11/11/20 11/11/20 11/11/20 07:56 07:57 08:00 08:25 Pulse 68 Resp 18 18 B/P (MAP) 150/64 Pulse Ox 98 98 O2 Delivery Room Air Room Air Room Air Intake and Output 11/10/20 11/10/20 11/11/20 15:00 23:00 07:00 Intake Total 740 ml 250 ml 0 ml Output Total 25 ml 30 ml 10 ml Balance 715 ml 220 ml -10 ml Justicifation of Admission Dx: Justifications for Admission: Justification of Admission Dx: N/A JENNIFER ESCUDERO MD November 11, 2020 09:43
--- NOTE | 2020-11-11 10:01 | NUR ---
SS following up with discharge planning. SS reviewed pt chart and discussed with pt RN. Pt is currently on room air. COVID19 negative. Pt had right carotid endarterectomy on 11/10/2020. PT/OT recommended home independent. Probable discharge to home today. SS will continue to follow for discharge planning.
[2020-11-11 11:00] VITALS: BP 147/67
--- NOTE | 2020-11-11 11:05 | PDOC3 ---
[facility]-Discharge Summary Date of Admission: Date of Admission: Nov 07, 2020 Date of Discharge: Date of Discharge: November 11, 2020 Discharge Diagnosis: Discharge Diagnosis: TIA, dizzyness and weakness, amaurosis fugax due to severe left carotid stenosis status post endarterectomy 11/10/2020 Chronic diastolic grade 1 abnormal relaxation CHF Chronic back pain with L4-L5 spinal stenosis Acute cystitis ruled out, UA positive for WBC without bacteria Hospital Course: Hospital Course: 75-year-old male admit with hip pain, leg pain, and arm weakness. He has multiple complaints he reports having a recent MRI, with angio done and complains of worsening tinnitus withpain, he has some new vision change, some blurry vision that is now improved. He states that this evening he had some mild chest tightness with some numbness in his arm. 11/10/2020 No acute events overnight. Patient taken to the OR today for right carotid endarterectomy. Patient's chart, labs, images were reviewed and discussed with RN He has critical right internal carotid stenosis and plan for right carotid endarterectomy tomorrow. still weak, On day of discharge patient was clinically stable. Surgical incision was clear dry and intact and SETPHANIE drain was pulled out with any complications. Patient will has 2 to 3-week follow-up with vascular surgery. 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 11/11/20 Reported Medications Rosuvastatin Calcium (Rosuvastatin Calcium) 40 Mg Tablet, 1 TAB PO DAILY for cholesterol 11/07/20 Hydrocodone/Acetaminophen (Hydrocodone-Acetamin 7.5-325) 1 Each Tablet, 1 TAB PO TID PRN for PAIN 11/07/20 Temazepam (TEMAZEPAM) 30 Mg Capsule, 1 CAP PO PRN QHS PRN for sleep aid 11/07/20 Tamsulosin Hcl (FLOMAX) 0.4 Mg Cap.er.24h, 0.04 MG DAILY for bladder 11/07/20 Metoprolol Succinate (METOPROLOL SUCCINATE ( XL )) 25 Mg Tab.er.24h, 50 MG DAILY for blood pressure 11/07/20 Amlodipine Besylate (AMLODIPINE BESYLATE) 10 Mg Tablet, 1 TAB PO DAILY for blood pressure MDD 10 11/07/20 Cholecalciferol (Vitamin D3) (VITAMIN D) 5,000 Unit Tablet, 5000 UNIT PO DAILY 10/30/13 Aspirin (OTILIA CHEWABLE) 81 Mg Tab.chew, 81 MG PO DAILY, TAB.CHEW 10/30/13 Thiamine Mononitrate (VITAMIN B-1) 100 Mg Tablet, 100 MG PO BID 10/30/13 Omeprazole (OMEPRAZOLE) 40 Mg Capsule.dr, 40 MG PO DAILY 10/30/13 Discontinued Reported Medications Sucralfate (SUCRALFATE) 1 Gm Tablet, 1 GM PO QID 10/30/13 Zolpidem Tartrate (ZOLPIDEM TARTRATE) 10 Mg Tablet, 10 MG PO PRN DAILY PRN for INSOMNIA 10/30/13 Amoxicillin (AMOXICILLIN) 500 Mg Capsule, 500 MG PO QID 10/30/13 Meloxicam (MELOXICAM) 15 Mg Tablet, 15 MG PO PRN DAILY PRN for INFLAMMATION 10/30/13 Fenofibrate Nanocrystallized (FENOFIBRATE) 145 Mg Tablet, 145 MG PO DAILY 10/30/13 Simvastatin (SIMVASTATIN) 80 Mg Tablet, 80 MG PO DAILY 10/30/13 Tramadol Hcl (TRAMADOL HCL) 50 Mg Tablet, 50 MG PO QIDPRN PRN for PAIN 10/30/13 Scheduled Amlodipine Besylate (Amlodipine Besylate), 1 TAB PO DAILY, (Reported) Aspirin (Otilia Chewable), 81 MG PO DAILY, (Reported) Cholecalciferol (Vitamin D3) (Vitamin D), 5,000 UNIT PO DAILY, (Reported) Metoprolol Succinate (Metoprolol Succinate ( Xl )), 50 MG DAILY, (Reported) Omeprazole (Omeprazole), 40 MG PO DAILY, (Reported) Rosuvastatin Calcium (Rosuvastatin Calcium), 1 TAB PO DAILY, (Reported) Tamsulosin Hcl (Flomax), 0.04 MG DAILY, (Reported) Thiamine Mononitrate (Vitamin B-1), 100 MG PO BID, (Reported) Scheduled PRN Hydrocodone Bit/Acetaminophen (Hydrocodone-Apap 7.5-325 ), 1 TAB PO PRN TID PRN for MILD TO MODERATE PAIN Hydrocodone/Acetaminophen (Hydrocodone-Acetamin 7.5-325), 1 TAB PO TID PRN for PAIN, (Reported) Temazepam (Temazepam), 1 CAP PO PRN QHS PRN for sleep aid, (Reported) Discontinued Medications Amoxicillin (Amoxicillin), 500 MG PO QID, (Reported) Fenofibrate Nanocrystallized (Fenofibrate), 145 MG PO DAILY, (Reported) Meloxicam (Meloxicam), 15 MG PO PRN DAILY PRN for INFLAMMATION, (Reported) Simvastatin (Simvastatin), 80 MG PO DAILY, (Reported) Sucralfate (Sucralfate), 1 GM PO QID, (Reported) Tramadol Hcl (Tramadol Hcl), 50 MG PO QIDPRN PRN for PAIN, (Reported) Zolpidem Tartrate (Zolpidem Tartrate), 10 MG PO PRN DAILY PRN for INSOMNIA, (Reported) Total Time: Total Time: Total time spent was 40 minutes in preparing scripts, discharge planning with SWI and RN and preparing this discharge summary Patient seen and examined on day of discharge. No acute abnormal findings. Justicifation of Admission Dx: Justifications for Admission: Justification of Admission Dx: N/A JENNIFER SMITH MD November 11, 2020 11:05
[2020-11-11 14:02] VITALS: BP 121/59
--- NOTE | 2020-11-11 14:20 | NUR ---
DISCHARGED PATIENT TO HOME. DISCHARGE INSTRUCTIONS GIVEN. PIV AND HEART MONITOR REMOVED. ESCORTED PATIENT OFF UNIT INTO A PRIVATE VEHICLE.
== END 2020-11-11 14:18 | disposition home or self-care (01) | DRG 38 ==
LOC: ER 01:36 → 2 NORTH 07:03 → OBSVTOIN 15:00
PROVIDERS: ADMIT Internal Medicine; ATTEND Internal Medicine
PROC: 0HBRXZZ Excision of Toe Nail, External Approach (ICD-10-PCS; 2020-11-08)
PROC: 0HBRXZZ Excision of Toe Nail, External Approach (ICD-10-PCS; 2020-11-08)
PROC: 0HBRXZZ Excision of Toe Nail, External Approach (ICD-10-PCS; 2020-11-08)
PROC: 0HBRXZZ Excision of Toe Nail, External Approach (ICD-10-PCS; 2020-11-08)
PROC: 0HBRXZZ Excision of Toe Nail, External Approach (ICD-10-PCS; 2020-11-08)
PROC: 0HBRXZZ Excision of Toe Nail, External Approach (ICD-10-PCS; 2020-11-08)
PROC: 0HBRXZZ Excision of Toe Nail, External Approach (ICD-10-PCS; 2020-11-08)
PROC: 0HBRXZZ Excision of Toe Nail, External Approach (ICD-10-PCS; 2020-11-08)
PROC: 0HBRXZZ Excision of Toe Nail, External Approach (ICD-10-PCS; 2020-11-08)
PROC: 0HBRXZZ Excision of Toe Nail, External Approach (ICD-10-PCS; 2020-11-08)
PROC: 03CH0ZZ Extirpation of Matter from Right Common Carotid Artery, Open Approach (ICD-10-PCS; 2020-11-10)
PROC: 03CK0ZZ Extirpation of Matter from Right Internal Carotid Artery, Open Approach (ICD-10-PCS; principal; 2020-11-10 10:00)
DX: I65.23 Occlusion and stenosis of bilateral carotid arteries (principal); I50.30 Unspecified diastolic (congestive) heart failure; I11.0 Hypertensive heart disease with heart failure; B35.1 Tinea unguium; E03.8 Other specified hypothyroidism; E78.00 Pure hypercholesterolemia, unspecified; E78.5 Hyperlipidemia, unspecified; F17.210 Nicotine dependence, cigarettes, uncomplicated; G43.109 Migraine with aura, not intractable, without status migrainosus; G62.9 Polyneuropathy, unspecified; G89.29 Other chronic pain; H54.61 Unqualified visual loss, right eye, normal vision left eye; I25.10 Atherosclerotic heart disease of native coronary artery without angina pectoris; J44.9 Chronic obstructive pulmonary disease, unspecified; L60.0 Ingrowing nail; F41.9 Anxiety disorder, unspecified; K21.9 Gastro-esophageal reflux disease without esophagitis; M48.061 Spinal stenosis, lumbar region without neurogenic claudication; H93.A9 Pulsatile tinnitus, unspecified ear; M16.0 Bilateral primary osteoarthritis of hip; L60.1 Onycholysis; M17.10 Unilateral primary osteoarthritis, unspecified knee; Z87.442 Personal history of urinary calculi; Z79.82 Long term (current) use of aspirin; Z20.822 Contact with and (suspected) exposure to COVID-19
CPT/HCPCS: 36415; 70450; 70496; 70498; 70551; 71045; 73521; 80048; 80053; 80061; 81001; 83880; 84443; 84484; 85025; 85027; 87426; 93005; 93306; A4213; A4222; A4351; A4364; A4452; A4930; A6402; C1751; G0378; G0379; J0690; J1644; J2250; J2370; J2405; J2720; J2795; J3010; J3490; J7040; Q9967; U0003; U0005; 97110-GP; 97116-GP; 97530-GO; 97530-GP; 97535-GO; 99285-25

== ENCOUNTER 2021-02-03 23:47 | Emergency (ER) | payer MEDICARE ==
[~2021-02-03 23:47] MED LIST changes: +AMLO-187 PO; +HYDR-2763 PO; +HYDR-2765 PO; +METO-239; -OMEP40CA45 PO; +OMEP40CA7 PO; +ROSU40TA22 PO; +TAMS0.4C97; +TEMA30CA PO
[2021-02-04] MEDS ORDERED: HYDROmorphone 2 MG/ML VIAL ONE ×3 (01:22→05:34)
--- NOTE | 2021-02-04 07:12 | RAD ---
EXAMINATION: CT abdomen and pelvis without IV contrast. INDICATION:75 years, Male, flank pain, evaluate for stone. TECHNIQUE: Axial CT images of the abdomen and pelvis were obtained. Coronal and sagittal reformatted performed. COMPARISON: 08/29/2005. Exposure: One or more of the following individualized dose reduction techniques were utilized for thi s examination: 1. Automated exposure control 2. Adjustment of the mA and/or kV according to patient size 3. Use of iterative reconstruction technique. FINDINGS: LOWER CHEST: Mild centrilobular emphysema in bibasilar lungs. ABDOMEN/PELVIS: Within the limitation of noncontrast exam, There is a 9 mm calculus in the proximal right ureter with associated urothelial thickening and adjac ent fat stranding. No upstream hydronephrosis. There is a 7 mm nonobstructing calculus in the lower p ole right kidney. Punctate nonobstructing calculi in the interpolar and lower pole left kidney measur es up to 3 mm. No left hydronephrosis. Simple appearing 3.9 cm cyst exophytic from the upper pole lef t kidney. Normal size and morphology of the liver. Subcentimeter hypodensity in the right hepatic lobe, too sma ll to characterize. Multiple calcified granulomas in the liver. Unremarkable gallbladder and biliary ducts. No splenomegaly. Mildly atrophic pancreas with fat infiltration. There is a 1.5 cm hypodense n odule with indeterminate Hounsfield unit, this nodule is minimally decreasing in size since August 2005 which measures 1.2 cm, findings most likely representing benign etiology such as lipid poor angi yobany.. Colonic diverticulosis without diverticulitis. No bowel obstruction or wall thickening. Mild aortoili ac atherosclerotic calcifications. No pneumoperitoneum or ascites. No lymphadenopathy in the abdomen or pelvis by size criteria. Underdistended urinary bladder which limits evaluation. Prostatomegaly wi th coarse calcifications. Bilateral vasectomy clips. MUSCULOSKELETAL: Severe bilateral hip osteoarthritis. Moderate multilevel degenerative changes in the lumbar spine. No acute osseous process. Small fat-containing right inguinal hernia. IMPRESSION: 1. A 9 mm calculus in the proximal right ureter with associated reactive urothelial thickening and ad jacent fat stranding. No upstream hydronephrosis. Consider correlation with urinalysis. 2. Nonobstructing bilateral nephrolithiasis measuring up to 7 mm in the right kidney. 3. Other chronic/incidental findings, as described above. Electronically signed by: Jeniffer Becerra MD (02/04/2021 7:10 AM) [facility]
[2021-02-04 10:17] LABS: COLOR,URINE YELLOW
[2021-02-04 10:18] LABS: BILIRUBIN,URINE NEGATIVE (NEG); CLARITY,URINE CLEAR; NITRITE,URINE NEGATIVE (NEG); PROTEIN,URINE NEGATIVE (NEG-TRACE)
[2021-02-04 10:19] LABS: BACTERIA,URINE 0 /HPF (0-FEW)
== END 2021-02-04 06:00 | disposition home or self-care (01) ==
LOC: ER 23:47
DX: N20.2 Calculus of kidney with calculus of ureter (principal)
CPT/HCPCS: 74176; 81001; 96372; 99284; 99285-25